=== PATIENT | male | born 1995 | race American Indian/Alaskan Native ===

== ENCOUNTER 2016-12-14 04:05 | Inpatient (IN) | payer MEDICAID ==
[2016-12-14 04:59] LABS: Eosinophils % (Auto) 1.4 % (0.0-4.3); Mean Corpuscular HGB Conc 30 % (32-34); Mean Corpuscular Volume 70 fl (84-94); Platelet Count 391 K/mm3 (140-440); Red Blood Count 5.18 M/mm3 (3.65-5.03)
[2016-12-14 05:07] LABS: Hematocrit 36.3 % (35.5-45.6); Mean Corpuscular Hemoglobin 21 pg (28-32); Red Cell Distribution Width 22.9 % (13.2-15.2)
[2016-12-14 05:22] LABS: Anion Gap 20 mmol/L; BUN/Creatinine Ratio 11.66; Blood Urea Nitrogen 7 mg/dL (9-20); Calcium 8.6 mg/dL (8.4-10.2); Carbon Dioxide 22 mmol/L (22-30); Chloride 100.1 mmol/L (98-107); Glucose 81 mg/dL (75-100); Potassium 3.8 mmol/L (3.6-5.0); Sodium 138 mmol/L (137-145)
[2016-12-14 05:25] LABS: INR 1.09 (0.87-1.13); Partial Thromboplastin Time 34.8 Sec. (24.2-36.6)
[2016-12-14 06:33] LABS: Alanine Aminotransferase 10 units/L (7-56); Alkaline Phosphatase 86 units/L (35-129); Total Protein 7.9 g/dL (6.3-8.2)
[2016-12-14 06:38] LABS: Bilirubin,Direct < 0.2 mg/dL (0-0.2)
[2016-12-14 06:41] LABS: Bilirubin,Indirect 0.5 mg/dL; Bilirubin,Total 0.7 mg/dL (0.1-1.2)
[2016-12-14] MEDS ORDERED: MORPHINE IV ONE ×2 (07:22→10:46)
[2016-12-14] MEDS ORDERED: ZOFRAN IV ONE (07:22)
[2016-12-14] MEDS ORDERED: NACL 0.9% 1000 ML 1,000 ML IV ONE (07:22)
[2016-12-14 08:33] LABS: Urine Drugs of Abuse Note Disclamer
[2016-12-14 08:46] LABS: Bacteria,Urine 1+ /HPF (Negative); Bilirubin,Urine NEG (Negative); Blood,Urine NEG (Negative); Ketones,Urine 20 mg/dL (Negative); Leukocyte Esterase,Urine SM (Negative); Mucus,Urine 3+ /HPF; Nitrite,Urine POS (Negative); Urobilinogen,Urine < 2.0 mg/dL (<2.0)
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
--- NOTE | 2016-12-14 09:28 | Admit Criteria Form ---
Admission Criteria Documentation: WOUND COMPLICATIONS Clinical Indications for Inpatient Care (Place 'X' for any and all applicable criteria): Ongoing inpatient care may be indicated for wound complications with ANY ONE of the following (1) (15): [X]I. Infection with ANY ONE of the following(32)(33): [ ]a) Temperature greater than 38.5 C (101.3 F) [ ]b) Evidence of tissue necrosis [ ]c) Erythema diameter expanding around wound despite treatment [ ]d) Mental status changes [ ]e) Dehydration [ ]f) Bacteremia [ ]g) Hemodynamic instability [ ]h) Suspected necrotizing fasciitis [ ]i) Rapidly spreading lesions [ ]j) High-risk location (eg, perineum, sternum, orbit) [X ]k) High-risk coexisting clinical condition as indicated by ANY ONE of the following: [ ]i) Poorly controlled diabetes [ ]ii) Cirrhosis [ ]iii) Renal failure [ ]iv) Neutropenia [ ] v) Asplenia [ ]vi) Immunosuppression (eg, AIDS, chronic corticosteroid use) [ X]viii) Other high-risk medical comorbidities [ ] II. Dehiscence requiring frequent monitoring or immediate treatment [ ] III. Hematoma with ANY ONE of the following: [ ]a) Hemodynamic instability or acute anemia due to rapid development of hematoma [ ]b) Neck hematoma causing airway compression [ ]c) Retroperitoneal hematoma [ ]d) Uncontrolled coagulopathy [ ]IV. Seroma with evidence of secondary infection and requirement for IV antibiotics [D](31) [ ]V. Pain that cannot be managed at lower level of care Extended stay beyond goal length of stay for primary condition may be needed until ALL of the following are present(1)(33)(34): [ ]a) Afebrile or fever resolving [ ]b) Hemodynamic stability [ ]c) Pain resolving [ ]d) Wound closed, continuity adequately restored, or wound manageable at lower level of care [ ]e) No drain needed or drain care manageable at lower level of care [ ]f) Wound hematoma or seroma resolving [ ]g) Antibiotics not needed or regimen manageable at lower level of care(38) [ ]h) Dressing care manageable at lower level of care [ ]i) Coagulopathy absent, resolved, or treatable at lower level of care [ ]j) Medical comorbidities resolved or treatable at lower level of care The original [facility] content created by Cramen Canales has been revised. The portions of the content which have been revised are identified through the use of italic text or in bold, and Carmen Canales has neither reviewed nor approved the modified material. All other unmodified content is copyright [facility] [employer]. Please see references footnoted in the original [facility] edition 2016 Admission Criteria Met: Yes
[2016-12-14] MEDS ORDERED: BABY ASPIRIN PO ONE (09:45)
[2016-12-14] MEDS ORDERED: MORPHINE ONE (10:36)
--- NOTE | 2016-12-14 10:36 | XRay Report ---
CHEST ONE VIEW INDICATION: Shortness of breath. COMPARISON: 08/24/2016. FINDINGS: Portable, single, frontal chest radiograph demonstrates normal cardiomediastinal silhouette. Clear lungs. Stable bones, including left seventh and eighth rib bony bridging. Few tiny radiodensities projecting about the level of the aortic knob may again be old post traumatic. Extrinsic EKG leads. CONCLUSION: No acute disease in the chest, stable. Thank you for the opportunity to participate in this patient's care.
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
[2016-12-14] MEDS ORDERED: NON-FORMULARY (Oxycodone Hcl/Acetaminophen [Percocet 10/325 Mg] 1 EACH) PO PRN (10:47)
[2016-12-14] MEDS ORDERED: DULCOLAX PR PRN (10:48)
[2016-12-14] MEDS ORDERED: MILK OF MAGNESIA PO PRN (10:48)
[2016-12-14] MEDS ORDERED: ZOFRAN IV PRN (10:48)
[2016-12-14] MEDS ORDERED: TYLENOL PO PRN (10:48)
[2016-12-14] MEDS ORDERED: COUMADIN PO SCH (11:00)
[2016-12-14] MEDS ORDERED: LOVENOX SUB-Q SCH (11:00)
--- NOTE | 2016-12-14 11:00 | XRay Report ---
Right femur: The patient has a percutaneous drain in the soft tissues of the lateral hip. There is generalized edema of the tissues. There is a medullary darren through the shaft with exuberant periosteal new bone formation along the shaft mostly on the medial side. The greater trochanter is inhomogeneous and somewhat sclerotic with poor cortical margination laterally. This heterotopic appearing calcification posteriorly and anteriorly at the level of the trochanter. I have no prior exams for comparison. Impressions: 1. The soft tissue findings are consistent with inflammation. No distinguishable abscess identified. 2. The greater trochanteric findings are suspicious for osteomyelitis. Without prior studies for comparison however this determination is difficult.
[2016-12-14] MEDS ORDERED: VANCOMYCIN PHARMACY TO DOSE IV SCH (12:00)
[2016-12-14] MEDS ORDERED: LOVENOX SUB-Q ONE (12:32)
[2016-12-14] MEDS ORDERED: NACL 0.9% 1000 ML 1,000 ML IV SCH (13:00)
[2016-12-14 13:40] LABS: INR 1.17 (0.87-1.13)
[2016-12-14] MEDS: PERCOCET 5/325 PO PRN ×2 (13:41→19:50)
[2016-12-14] MEDS: VANCOMYCIN VIAL 2,000 MG in NACL 0.9% 500 ML 500 ML IV SCH (16:26)
[2016-12-14] MEDS: LOVENOX SUB-Q SCH (16:39)
[2016-12-14] MEDS: COUMADIN PO SCH (17:26)
[2016-12-15] MEDS: VANCOMYCIN VIAL 2,000 MG in NACL 0.9% 500 ML 500 ML IV SCH (00:35)
[2016-12-15] MEDS: PERCOCET 5/325 PO PRN ×4 (05:28→23:22)
[2016-12-15 07:07] LABS: Mean Corpuscular HGB Conc 29 % (32-34); Mean Corpuscular Volume 72 fl (84-94); Platelet Count 359 K/mm3 (140-440); Red Blood Count 4.62 M/mm3 (3.65-5.03); White Blood Count 5.9 K/mm3 (4.5-11.0)
[2016-12-15 07:11] LABS: Alanine Aminotransferase 8 units/L (7-56); Albumin 3.1 g/dL (3.9-5); Albumin/Globulin Ratio 0.8 %; Alkaline Phosphatase 76 units/L (35-129); Anion Gap 15 mmol/L; BUN/Creatinine Ratio 16.66; Bilirubin,Total 0.2 mg/dL (0.1-1.2); Blood Urea Nitrogen 10 mg/dL (9-20); Calcium 8.1 mg/dL (8.4-10.2); Carbon Dioxide 23 mmol/L (22-30); Chloride 106.7 mmol/L (98-107); Glucose 88 mg/dL (75-100); Sodium 141 mmol/L (137-145); Total Protein 6.8 g/dL (6.3-8.2)
[2016-12-15 07:18] LABS: Hematocrit 33.1 % (35.5-45.6); Hemoglobin 9.7 gm/dl (11.8-15.2); Mean Corpuscular Hemoglobin 21 pg (28-32)
[2016-12-15 08:27] LABS: Basophils % (Manual) 0 % (0.0-1.8); Blastocytes % (Manual) 0 %
[2016-12-15 08:28] LABS: Anisocytosis 1+; Diff Status Complete; Elliptocytes 1+; Hypochromasia 1+; Microcytosis 1+; Ovalocytes 1+
[2016-12-15] MEDS: LOVENOX SUB-Q SCH (10:37)
[2016-12-15 10:55] LABS: INR 1.14 (0.87-1.13)
--- NOTE | 2016-12-15 12:51 | Progress Note ---
Assessment and Plan Assessment and plan: --History of DVT Continue Coumadin, closely monitor INR Target INR 2-3 --Cellulitis Continue IV antibiotics follow cultures and supportive care --Medical noncompliance Patient strongly advised to comply with medications and diet --Ongoing tobacco use Smoking cessation counseling done advised nicotine patch --History of cocaine use Counseling done advised to quit drug use --DVT prophylaxis Patient is already on Coumadin Plan of care discussed with the patient as well as the nurse History Interval history: Patient seen and evaluated medical records reviewed Patient complains of some vague pain Alert awake oriented 3 not in acute distress Hospitalist Physical - Constitutional Vitals: Temp Pulse Resp BP Pulse Ox 98.2 F 72 16 120/79 100 12/15/16 07:35 12/15/16 07:35 12/15/16 07:35 12/15/16 07:35 12/15/16 07:35 General appearance: Present: no acute distress, well-nourished - EENT Eyes: Present: PERRL, EOM intact - Neck Neck: Present: supple, normal ROM - Respiratory Respiratory effort: normal Respiratory: negative: rales, rhonchi, wheezing - Cardiovascular Rhythm: regular Heart Sounds: Present: S1 & S2 - Extremities Extremities: no ischemia, pulses intact Peripheral Pulses: within normal limits - Abdominal General gastrointestinal: soft, non-tender, non-distended, normal bowel sounds Results - Labs CBC & Chem 7: 12/15/16 06:22 12/15/16 06:22 Labs: Laboratory Last Values WBC 5.9 K/mm3 (4.5-11.0) 12/15/16 06:22 RBC 4.62 M/mm3 (3.65-5.03) 12/15/16 06:22 Hgb 9.7 gm/dl (11.8-15.2) L 12/15/16 06:22 Hct 33.1 % (35.5-45.6) L 12/15/16 06:22 MCV 72 fl (84-94) L 12/15/16 06:22 MCH 21 pg (28-32) L 12/15/16 06:22 MCHC 29 % (32-34) L 12/15/16 06:22 RDW 23.0 % (13.2-15.2) H 12/15/16 06:22 Plt Count 359 K/mm3 (140-440) 12/15/16 06:22 Lymph % (Auto) 32.9 % (13.4-35.0) 12/14/16 04:37 [place] % (Auto) 7.2 % (0.0-7.3) 12/14/16 04:37 Eos % (Auto) 1.4 % (0.0-4.3) 12/14/16 04:37 Baso % (Auto) 1.0 % (0.0-1.8) 12/14/16 04:37 Lymph # 2.6 K/mm3 (1.2-5.4) 12/14/16 04:37 [place] # 0.6 K/mm3 (0.0-0.8) 12/14/16 04:37 Eos # 0.1 K/mm3 (0.0-0.4) 12/14/16 04:37 Baso # 0.1 K/mm3 (0.0-0.1) 12/14/16 04:37 Add Manual Diff Complete 12/15/16 06:22 Total Counted 100 12/15/16 06:22 Seg Neutrophils % 57.5 % (40.0-70.0) 12/14/16 04:37 Seg Neuts % (Manual) 59.0 % (40.0-70.0) 12/15/16 06:22 Band Neutrophils % 0 % 12/15/16 06:22 Lymphocytes % (Manual) 31.0 % (13.4-35.0) 12/15/16 06:22 Reactive Lymphs % (Man) 0 % 12/15/16 06:22 Monocytes % (Manual) 4.0 % (0.0-7.3) 12/15/16 06:22 Eosinophils % (Manual) 6.0 % (0.0-4.3) H 12/15/16 06:22 Basophils % (Manual) 0 % (0.0-1.8) 12/15/16 06:22 Metamyelocytes % 0 % 12/15/16 06:22 Myelocytes % 0 % 12/15/16 06:22 Promyelocytes % 0 % 12/15/16 06:22 Blast Cells % 0 % 12/15/16 06:22 Nucleated RBC % Not Reportable 12/15/16 06:22 Seg Neutrophils # 4.6 K/mm3 (1.8-7.7) 12/14/16 04:37 Seg Neutrophils # Man 3.5 K/mm3 (1.8-7.7) 12/15/16 06:22 Band Neutrophils # 0.0 K/mm3 12/15/16 06:22 Lymphocytes # (Manual) 1.8 K/mm3 (1.2-5.4) 12/15/16 06:22 Abs React Lymphs (Man) 0.0 K/mm3 12/15/16 06:22 Monocytes # (Manual) 0.2 K/mm3 (0.0-0.8) 12/15/16 06:22 Eosinophils # (Manual) 0.4 K/mm3 (0.0-0.4) 12/15/16 06:22 Basophils # (Manual) 0.0 K/mm3 (0.0-0.1) 12/15/16 06:22 Metamyelocytes # 0.0 K/mm3 12/15/16 06:22 Myelocytes # 0.0 K/mm3 12/15/16 06:22 Promyelocytes # 0.0 K/mm3 12/15/16 06:22 Blast Cells # 0.0 K/mm3 12/15/16 06:22 WBC Morphology Not Reportable 12/15/16 06:22 Hypersegmented Neuts Not Reportable 12/15/16 06:22 Hyposegmented Neuts Not Reportable 12/15/16 06:22 Hypogranular Neuts Not Reportable 12/15/16 06:22 Smudge Cells Not Reportable 12/15/16 06:22 Toxic Granulation Not Reportable 12/15/16 06:22 Toxic Vacuolation Not Reportable 12/15/16 06:22 Dohle Bodies Not Reportable 12/15/16 06:22 Pelger-Huet Anomaly Not Reportable 12/15/16 06:22 Artie Rods Not Reportable 12/15/16 06:22 Platelet Estimate Appears normal 12/15/16 06:22 Clumped Platelets Not Reportable 12/15/16 06:22 Plt Clumps, EDTA Not Reportable 12/15/16 06:22 Large Platelets Not Reportable 12/15/16 06:22 Giant Platelets Not Reportable 12/15/16 06:22 Platelet Satelliting Not Reportable 12/15/16 06:22 Plt Morphology Comment Not Reportable 12/15/16 06:22 RBC Morphology Not Reportable 12/15/16 06:22 Dimorphic RBCs Not Reportable 12/15/16 06:22 Polychromasia Not Reportable 12/15/16 06:22 Hypochromasia 1+ 12/15/16 06:22 Poikilocytosis Not Reportable 12/15/16 06:22 Anisocytosis 1+ 12/15/16 06:22 Microcytosis 1+ 12/15/16 06:22 Macrocytosis Not Reportable 12/15/16 06:22 Spherocytes Not Reportable 12/15/16 06:22 Pappenheimer Bodies Not Reportable 12/15/16 06:22 Sickle Cells Not Reportable 12/15/16 06:22 Target Cells Not Reportable 12/15/16 06:22 Tear Drop Cells Not Reportable 12/15/16 06:22 Ovalocytes 1+ 12/15/16 06:22 Helmet Cells Not Reportable 12/15/16 06:22 [place] Bodies Not Reportable 12/15/16 06:22 Howard Rings Not Reportable 12/15/16 06:22 [place] Cells Not Reportable 12/15/16 06:22 Bite Cells Not Reportable 12/15/16 06:22 Crenated Cell Not Reportable 12/15/16 06:22 Elliptocytes 1+ 12/15/16 06:22 Acanthocytes (Spur) Not Reportable 12/15/16 06:22 Rouleaux Not Reportable 12/15/16 06:22 Hemoglobin C Crystals Not Reportable 12/15/16 06:22 Schistocytes Not Reportable 12/15/16 06:22 Malaria parasites Not Reportable 12/15/16 06:22 Woodrow Bodies Not Reportable 12/15/16 06:22 Hem Pathologist Commnt No 12/15/16 06:22 PT 14.5 Sec. (12.2-14.9) 12/15/16 09:46 INR 1.14 (0.87-1.13) H 12/15/16 09:46 APTT 34.8 Sec. (24.2-36.6) 12/14/16 04:37 D-Dimer 331.26 ng/mlDDU (0-234) H 12/14/16 04:37 Sodium 141 mmol/L (137-145) 12/15/16 06:22 Potassium 4.0 mmol/L (3.6-5.0) 12/15/16 06:22 Chloride 106.7 mmol/L (98-107) 12/15/16 06:22 Carbon Dioxide 23 mmol/L (22-30) 12/15/16 06:22 Anion Gap 15 mmol/L 12/15/16 06:22 BUN 10 mg/dL (9-20) 12/15/16 06:22 Creatinine 0.6 mg/dL (0.8-1.5) L 12/15/16 06:22 Estimated GFR > 60 ml/min 12/15/16 06:22 BUN/Creatinine Ratio 16.66 % 12/15/16 06:22 Glucose 88 mg/dL (75-100) 12/15/16 06:22 Lactic Acid 1.4 mmol/L (0.7-2.0) 12/14/16 07:32 Calcium 8.1 mg/dL (8.4-10.2) L 12/15/16 06:22 Total Bilirubin 0.2 mg/dL (0.1-1.2) 12/15/16 06:22 Direct Bilirubin < 0.2 mg/dL (0-0.2) 12/14/16 04:37 Indirect Bilirubin 0.5 mg/dL 12/14/16 04:37 AST 13 units/L (5-40) 12/15/16 06:22 ALT 8 units/L (7-56) 12/15/16 06:22 Alkaline Phosphatase 76 units/L (35-129) 12/15/16 06:22 Troponin T < 0.010 ng/mL (0.00-0.029) 12/14/16 04:37 Total Protein 6.8 g/dL (6.3-8.2) 12/15/16 06:22 Albumin 3.1 g/dL (3.9-5) L 12/15/16 06:22 Albumin/Globulin Ratio 0.8 % 12/15/16 06:22 Urine Color Yellow (Yellow) 12/14/16 08:15 Urine Turbidity Slightly-cloudy (Clear) 12/14/16 08:15 Urine pH 6.0 (5.0-7.0) 12/14/16 08:15 Ur Specific [place] 1.019 (1.003-1.030) 12/14/16 08:15 Urine Protein 30 mg/dl mg/dL (Negative) 12/14/16 08:15 Urine Glucose (UA) Neg mg/dL (Negative) 12/14/16 08:15 Urine Ketones 20 mg/dL (Negative) 12/14/16 08:15 Urine Blood Neg (Negative) 12/14/16 08:15 Urine Nitrite Pos (Negative) 12/14/16 08:15 Urine Bilirubin Neg (Negative) 12/14/16 08:15 Urine Urobilinogen < 2.0 mg/dL (<2.0) 12/14/16 08:15 Ur Leukocyte Esterase Sm (Negative) 12/14/16 08:15 Urine WBC (Auto) 4.0 /HPF (0.0-6.0) 12/14/16 08:15 Urine RBC (Auto) 1.0 /HPF (0.0-6.0) 12/14/16 08:15 U Epithel Cells (Auto) 3.0 /HPF (0-13.0) 12/14/16 08:15 Urine Bacteria (Auto) 1+ /HPF (Negative) 12/14/16 08:15 Amorphous Crystals Few 12/14/16 08:15 Urine Mucus 3+ /HPF 12/14/16 08:15 Urine Opiates Screen Presumptive negative 12/14/16 08:15 Urine Methadone Screen Presumptive negative 12/14/16 08:15 Ur Barbiturates Screen Presumptive negative 12/14/16 08:15 Ur Phencyclidine Scrn Presumptive negative 12/14/16 08:15 Ur Amphetamines Screen Presumptive negative 12/14/16 08:15 U Benzodiazepines Scrn Presumptive negative 12/14/16 08:15 Urine Cocaine Screen Presumptive positive 12/14/16 08:15 U Marijuana (THC) Screen Presumptive positive 12/14/16 08:15 Drugs of Abuse Note Disclamer 12/14/16 08:15
[2016-12-15] MEDS: VANCOMYCIN/NS 1 GM/250 ML 1 GM/250 ML BAG IV SCH ×2 (14:12→23:29)
[2016-12-15] MEDS: COUMADIN PO SCH (17:40)
[2016-12-16] MEDS: VANCOMYCIN/NS 1 GM/250 ML 1 GM/250 ML BAG IV SCH (05:34)
[2016-12-16] MEDS: PERCOCET 5/325 PO PRN ×3 (05:51→17:16)
[2016-12-16 05:53] LABS: INR 1.17 (0.87-1.13)
[2016-12-16 08:00] VITALS: BP 119/88
[2016-12-16] MEDS: LOVENOX SUB-Q SCH (10:39)
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
--- NOTE | 2016-12-17 07:44 | Vascular Lab Report ---
Right Lower Extremity Venous Duplex Study: Reason for Exam: Pain of the right lower extremity. Comments on the Right: Chronic deep venous thrombosis starting in the proximal femoral vein and extending through the common into the iliac veins.. The remaining veins visualized are freely compressible without evidence of internal echogenicity. Spontaneous and phasic flow is absent proximally. Comments on the Left: Nonocclusive age indeterminate venous thrombus noted in the left femoral extending into the common femoral veins.. The remaining veins visualized are freely compressible without evidence of internal echogenicity. Spontaneous and phasic flow is absent proximally. Impression: Bilateral deep venous thrombosis..
== END 2016-12-16 17:45 | disposition home or self-care (01) | DRG 603 ==
LOC: ED 04:05 → 3A 10:48
PROVIDERS: ADMIT Internal Medicine; ATTEND Internal Medicine
PROC: HZ34ZZZ Individual Counseling for Substance Abuse Treatment, Interpersonal (ICD-10-PCS; principal; 2016-12-15)
DX: L02.415 Cutaneous abscess of right lower limb (principal); G82.20 Paraplegia, unspecified; M86.651 Other chronic osteomyelitis, right thigh; F17.210 Nicotine dependence, cigarettes, uncomplicated; I82.521 Chronic embolism and thrombosis of right iliac vein; I82.513 Chronic embolism and thrombosis of femoral vein, bilateral; I82.532 Chronic embolism and thrombosis of left popliteal vein; I82.592 Chronic embolism and thrombosis of other specified deep vein of left lower extremity; G89.4 Chronic pain syndrome; L89.90 Pressure ulcer of unspecified site, unspecified stage; Z91.14 Patient's other noncompliance with medication regimen; Z93.3 Colostomy status; F14.90 Cocaine use, unspecified, uncomplicated; Z71.51 Drug abuse counseling and surveillance of drug abuser; Z71.6 Tobacco abuse counseling
CPT/HCPCS: 36415; 71010; 80048; 80053; 80074; 80307; 81001; 82140; 84484; 85007; 85025; 85379; 85610; 85730; 87040; 96361; 96374; 96375; 96376; J1650; J2270; J2405; J3370; J7030; J7040

== ENCOUNTER 2017-02-03 18:45 | Emergency (ER) | payer MEDICAID ==
[2017-02-03 19:30] VITALS: BP 122/77
== END 2017-02-03 20:00 | disposition left against medical advice (07) ==
LOC: ED 18:45
DX: R06.02 Shortness of breath (principal); R07.9 Chest pain, unspecified; Z53.21 Procedure and treatment not carried out due to patient leaving prior to being seen by health care provider

== ENCOUNTER 2017-02-11 20:26 | Emergency (ER) | payer MEDICAID | END 2017-02-11 22:19 | disposition left against medical advice (07) | LOC: ED 20:26 | DX: R07.9 Chest pain, unspecified (principal); Z53.21 Procedure and treatment not carried out due to patient leaving prior to being seen by health care provider ==

== ENCOUNTER 2017-03-01 22:25 | Emergency (ER) | payer MEDICAID | END 2017-03-01 23:04 | disposition left against medical advice (07) | LOC: ED 22:25 | DX: R55 Syncope and collapse (principal); Z53.21 Procedure and treatment not carried out due to patient leaving prior to being seen by health care provider ==

== ENCOUNTER 2017-07-13 12:16 | Emergency (ER) | payer MEDICAID ==
[2017-07-13 12:43] VITALS: BP 113/80
[2017-07-13 13:19] LABS: Urine Drugs of Abuse Note Disclamer
[2017-07-13 13:26] LABS: Eosinophils % (Auto) 1.1 % (0.0-4.3); Hemoglobin 10.6 gm/dl (11.8-15.2)
[2017-07-13 13:30] LABS: Bilirubin,Urine NEG (Negative); Blood,Urine NEG (Negative); Ketones,Urine NEG (Negative); Leukocyte Esterase,Urine SM (Negative); Mucus,Urine FEW /HPF; Nitrite,Urine NEG (Negative); Protein,Urine <15 mg/dL mg/dL (Negative); Urobilinogen,Urine < 2.0 mg/dL (<2.0)
[2017-07-13 13:34] LABS: Basophils % (Auto) 0.9 % (0.0-1.8); Hematocrit 32.8 % (35.5-45.6); Mean Corpuscular HGB Conc 32 % (32-34); Mean Corpuscular Hemoglobin 26 pg (28-32); Mean Corpuscular Volume 80 fl (84-94); Platelet Count 618 K/mm3 (140-440); Red Blood Count 4.08 M/mm3 (3.65-5.03); Red Cell Distribution Width 17.2 % (13.2-15.2); White Blood Count 7.9 K/mm3 (4.5-11.0)
[2017-07-13 13:39] LABS: Anion Gap 20 mmol/L; BUN/Creatinine Ratio 15; Blood Urea Nitrogen 6 mg/dL (9-20); Calcium 8.6 mg/dL (8.4-10.2); Carbon Dioxide 24 mmol/L (22-30); Glucose 74 mg/dL (75-100); Potassium 4.1 mmol/L (3.6-5.0); Sodium 136 mmol/L (137-145)
[2017-07-13 13:41] LABS: Mean Platelet Volume 6.1 fl (6-12)
[2017-07-13 18:32] LABS: Alanine Aminotransferase 7 units/L (7-56); Albumin 3.5 g/dL (3.9-5); Albumin/Globulin Ratio 0.7 %; Alkaline Phosphatase 86 units/L (35-129); Bilirubin,Total < 0.20 mg/dL (0.1-1.2); Total Protein 8.5 g/dL (6.3-8.2)
[2017-07-13 18:56] LABS: Bilirubin,Direct < 0.2 mg/dL (0-0.2)
== END 2017-07-13 19:39 | disposition left against medical advice (07) ==
LOC: ED 12:16
DX: M54.9 Dorsalgia, unspecified (principal); Z53.21 Procedure and treatment not carried out due to patient leaving prior to being seen by health care provider
CPT/HCPCS: 36415; 80048; 80074; 80307; 81001; 85025

== ENCOUNTER 2017-08-16 08:24 | Emergency (ER) | payer MEDICAID ==
[2017-08-16] MEDS ORDERED: PERCOCET 5/325 PO ONE (12:56)
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
[2017-08-16] MEDS ORDERED: ELIQUIS PO ONE (14:00)
[2017-08-16 14:02] VITALS: BP 112/84
== END 2017-08-16 14:02 | disposition home or self-care (01) ==
LOC: ED 08:24
DX: Z76.0 Encounter for issue of repeat prescription (principal); M54.5 Low back pain; I82.409 Acute embolism and thrombosis of unspecified deep veins of unspecified lower extremity; F17.200 Nicotine dependence, unspecified, uncomplicated
CPT/HCPCS: 99283

== ENCOUNTER 2017-11-13 07:27 | Emergency (ER) | payer MEDICAID ==
[2017-11-13] MEDS ORDERED: PERCOCET 5/325 PO ONE (07:39)
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
[2017-11-13 07:54] VITALS: BP 122/59
== END 2017-11-13 14:00 | disposition home or self-care (01) ==
LOC: ED 07:27
DX: L89.322 Pressure ulcer of left buttock, stage 2 (principal); G82.20 Paraplegia, unspecified
CPT/HCPCS: 99283

== ENCOUNTER 2017-11-13 21:47 | Emergency (ER) | payer MEDICAID ==
[2017-11-14 01:29] LABS: Basophils # (Auto) 0.1 K/mm3 (0.0-0.1); Basophils % (Auto) 0.9 % (0.0-1.8); Eosinophils # (Auto) 0.1 K/mm3 (0.0-0.4); Eosinophils % (Auto) 1.7 % (0.0-4.3); Hematocrit 39.5 % (35.5-45.6); Hemoglobin 12.6 gm/dl (11.8-15.2); Lymphocytes # (Auto) 1.5 K/mm3 (1.2-5.4); Lymphocytes % (Auto) 21.5 % (13.4-35.0); Mean Corpuscular HGB Conc 32 % (32-34); Mean Corpuscular Volume 76 fl (84-94); Monocytes # (Auto) 0.6 K/mm3 (0.0-0.8); Monocytes % (Auto) 8.4 % (0.0-7.3); Platelet Count 485 K/mm3 (140-440); Red Blood Count 5.22 M/mm3 (3.65-5.03); Red Cell Distribution Width 17.2 % (13.2-15.2)
[2017-11-14 01:46] LABS: BUN/Creatinine Ratio 13; Blood Urea Nitrogen 8 mg/dL (9-20); Hemolysis Index 4
[2017-11-14 01:47] LABS: Mean Corpuscular Hemoglobin 24 pg (28-32)
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
[2017-11-14 05:24] VITALS: BP 121/74
[2017-11-14 05:47] LABS: Amorphous Crystals,Urine 1+; Bilirubin,Urine NEG (Negative); Blood,Urine NEG (Negative); Calcium Oxalate Crystals,Urine 1+; Color,Urine Yellow (Yellow); Methadone Screen,Urine PRESUMPTIVE NEGATIVE; Mucus,Urine 3+ /HPF; Opiate Screen,Urine PRESUMPTIVE NEGATIVE; Urobilinogen,Urine < 2.0 mg/dL (<2.0)
[2017-11-14 05:58] LABS: Bacteria,Urine 2+ /HPF (Negative)
[2017-11-14 05:59] LABS: Amphetamine Screen,Urine PRESUMPTIVE POSITIVE; Benzodiazepines Screen,Urine PRESUMPTIVE POSITIVE; Cannabinoid Screen,Urine PRESUMPTIVE POSITIVE; Cocaine Screen,Urine PRESUMPTIVE POSITIVE
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
== END 2017-11-14 11:50 | disposition home or self-care (01) ==
LOC: EEVIPCON 21:47 → ED 21:47
DX: L89.109 Pressure ulcer of unspecified part of back, unspecified stage (principal); Z86.718 Personal history of other venous thrombosis and embolism; Z93.3 Colostomy status; F17.200 Nicotine dependence, unspecified, uncomplicated
CPT/HCPCS: 36415; 80048; 80307; 81001; 85025; 99283; G0480; 80320

== ENCOUNTER 2017-11-22 03:00 | Emergency (ER) | payer MEDICAID ==
[2017-11-22 08:35] LABS: Basophils # (Auto) 0.1 K/mm3 (0.0-0.1); Basophils % (Auto) 1.2 % (0.0-1.8); Eosinophils # (Auto) 0.1 K/mm3 (0.0-0.4); Eosinophils % (Auto) 1.1 % (0.0-4.3); Hemoglobin 12.3 gm/dl (11.8-15.2); Lymphocytes # (Auto) 2.2 K/mm3 (1.2-5.4); Lymphocytes % (Auto) 29.6 % (13.4-35.0); Mean Corpuscular HGB Conc 31 % (32-34); Mean Corpuscular Volume 77 fl (84-94); Monocytes # (Auto) 0.4 K/mm3 (0.0-0.8); Monocytes % (Auto) 5.3 % (0.0-7.3); Platelet Count 540 K/mm3 (140-440); Red Blood Count 5.05 M/mm3 (3.65-5.03); Red Cell Distribution Width 17.6 % (13.2-15.2)
[2017-11-22 08:38] LABS: Mean Corpuscular Hemoglobin 24 pg (28-32)
[2017-11-22 08:47] LABS: BUN/Creatinine Ratio 13; Blood Urea Nitrogen 8 mg/dL (9-20); Hemolysis Index 2
[2017-11-22 10:09] VITALS: BP 112/72
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
[2017-11-22 10:35] LABS: Bacteria,Urine 4+ /HPF (Negative); Bilirubin,Urine NEG (Negative); Blood,Urine NEG (Negative); Color,Urine Amber (Yellow); Protein,Urine >500 mg/dL (Negative); Urobilinogen,Urine < 2.0 mg/dL (<2.0)
[2017-11-22] MEDS ORDERED: BACTRIM DS PO ONE (10:55)
== END 2017-11-22 12:08 | disposition home or self-care (01) ==
LOC: ED 03:00
DX: N30.01 Acute cystitis with hematuria (principal); F17.200 Nicotine dependence, unspecified, uncomplicated; F12.10 Cannabis abuse, uncomplicated; Z86.718 Personal history of other venous thrombosis and embolism
CPT/HCPCS: 36415; 80048; 81001; 85025; 87076; 87086; 87186; 99283

== ENCOUNTER 2017-12-15 23:01 | Emergency (ER) | payer MEDICAID ==
[2017-12-16] MEDS ORDERED: PERCOCET 5/325 PO ONE (02:50)
[2017-12-16 02:59] VITALS: BP 113/69
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
== END 2017-12-16 05:22 | disposition home or self-care (01) ==
LOC: ED 23:01
DX: L89.899 Pressure ulcer of other site, unspecified stage (principal); G82.20 Paraplegia, unspecified; Z86.718 Personal history of other venous thrombosis and embolism; F17.200 Nicotine dependence, unspecified, uncomplicated; Z93.3 Colostomy status
CPT/HCPCS: 99282

== ENCOUNTER 2017-12-22 00:17 | Emergency (ER) | payer MEDICAID ==
[2017-12-22] MEDS ORDERED: PERCOCET 5/325 PO ONE (00:36)
[2017-12-22] MEDS ORDERED: PERCOCET 5/325 ONE (00:39)
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
[2017-12-22 02:47] VITALS: BP 108/72
== END 2017-12-22 02:47 | disposition home or self-care (01) ==
LOC: ED 00:17
DX: L89.329 Pressure ulcer of left buttock, unspecified stage (principal); F17.200 Nicotine dependence, unspecified, uncomplicated
CPT/HCPCS: 99283

== ENCOUNTER 2017-12-22 02:45 | Emergency (ER) | payer MEDICAID ==
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
[2017-12-22] MEDS ORDERED: PERCOCET 5/325 ONE (09:17)
[2017-12-22] MEDS ORDERED: PERCOCET 5/325 PO ONE (09:26)
[2017-12-22 09:31] VITALS: BP 128/73
[2017-12-22 09:50] LABS: Bacteria,Urine 1+ /HPF (Negative); Bilirubin,Urine NEG (Negative); Blood,Urine NEG (Negative); Color,Urine Yellow (Yellow); Mucus,Urine 2+ /HPF; Protein,Urine <15 mg/dL mg/dL (Negative)
[2017-12-22 11:33] LABS: Amphetamine Screen,Urine PRESUMPTIVE NEGATIVE; Benzodiazepines Screen,Urine PRESUMPTIVE NEGATIVE; Methadone Screen,Urine PRESUMPTIVE NEGATIVE; Opiate Screen,Urine PRESUMPTIVE NEGATIVE
[2017-12-22 11:55] LABS: Cannabinoid Screen,Urine PRESUMPTIVE POSITIVE; Cocaine Screen,Urine PRESUMPTIVE POSITIVE
== END 2017-12-22 10:25 | disposition home or self-care (01) ==
LOC: ED 02:45
DX: G82.20 Paraplegia, unspecified (principal); L89.229 Pressure ulcer of left hip, unspecified stage; L89.219 Pressure ulcer of right hip, unspecified stage; F17.200 Nicotine dependence, unspecified, uncomplicated
CPT/HCPCS: 80307; 81001; 87086; 99283

== ENCOUNTER 2018-01-04 18:06 | Emergency (ER) | payer MEDICAID ==
[2018-01-04] MEDS ORDERED: NACL 0.9% 500 ML 500 ML IV ONE ×2 (18:31→18:41)
[2018-01-04 19:10] LABS: Basophils % (Auto) 0.6 % (0.0-1.8); Hematocrit 39.9 % (35.5-45.6); Hemoglobin 12.5 gm/dl (11.8-15.2); Lymphocytes # (Auto) 0.9 K/mm3 (1.2-5.4); Lymphocytes % (Auto) 11.9 % (13.4-35.0); Mean Corpuscular HGB Conc 31 % (32-34); Mean Corpuscular Volume 79 fl (84-94); Monocytes # (Auto) 0.6 K/mm3 (0.0-0.8); Monocytes % (Auto) 7.7 % (0.0-7.3); Platelet Count 465 K/mm3 (140-440); Red Blood Count 5.07 M/mm3 (3.65-5.03)
[2018-01-04 19:13] LABS: Alanine Aminotransferase 6 units/L (7-56); BUN/Creatinine Ratio 10; Blood Urea Nitrogen 6 mg/dL (9-20); Calcium 8.9 mg/dL (8.4-10.2); Hemolysis Index 0; INR 0.96 (0.87-1.13)
[2018-01-04 19:53] LABS: Mean Corpuscular Hemoglobin 25 pg (28-32)
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
[2018-01-04 20:58] LABS: Bacteria,Urine 1+ /HPF (Negative); Bilirubin,Urine NEG (Negative); Blood,Urine NEG (Negative); Color,Urine Yellow (Yellow); Mucus,Urine FEW /HPF; Urobilinogen,Urine < 2.0 mg/dL (<2.0)
[2018-01-04] MEDS ORDERED: NORCO 5/325 PO ONE (20:58)
[2018-01-04 21:07] LABS: Protein,Urine >500 mg/dL (Negative)
--- NOTE | 2018-01-04 22:48 | XRay Report ---
FINAL REPORT EXAM: XR CHEST 1V AP HISTORY: possible Sepsis TECHNIQUE: AP portable view of the chest PRIORS: None. FINDINGS: Lines, tubes, and devices: N/A Lungs and pleura: Trachea is normal in position. Lungs are clear of infiltrate, pleural effusion, vascular congestion, or pneumothorax. Cardiomediastinal silhouette: Cardiac and mediastinal silhouettes are unremarkable. Other: Bony structures are intact. IMPRESSION: No acute cardiopulmonary process seen.
--- NOTE | 2018-01-04 23:06 | Cat Scan Report ---
FINAL REPORT EXAM: CT PELVIS WO CON HISTORY: osteomyeltis COMPARISON: None available. TECHNIQUE: Contiguous axial images were obtained. Additional sagittal and coronal reformatted images were obtained. FINDINGS: Large the sacral decubitus ulcer at the posterior margin of the left ischial tuberosity. Prominent skin thickening along the margin of the ulcer. There is prominent periosteal reaction sclerosis of left ischial tuberosity compatible with probable chronic osteomyelitis. No definite drainable abscess in the soft tissues on this noncontrast exam. There pockets a gas and ill-defined fluid in the sacral decubitus ulcer. Mild skin thickening and subcutaneous fat stranding along the inferior right gluteal cheek which could reflect cellulitis. No soft tissue or skin defect in that region. Right femoral darren is in place. There is heterotopic ossification at its margin. There is also heterotopic ossification along the margin of the left greater trochanter. There is skin thickening and subcutaneous soft tissue thickening at the lateral margins of the hips bilaterally which may relate to pressure points. No free fluid or fluid collection the pelvic cavity. Diffuse wall thickening the urinary bladder which may be on a chronic basis and may relate to is partially decompressed state. Prostate gland is unremarkable. Pelvic bowel loops normal in caliber. The appendix is normal in caliber. There multiple vessels along the subcutaneous fat and pelvic cavity. There also several small pelvic lymph nodes and inguinal lymph nodes. These may be reactive. None are pathologically enlarged. IMPRESSION: Large sacral decubitus ulcer at the posterior margin of the left ischial tuberosity. Prominent sclerosis and hypertrophic spurring along the left ischial tuberosity compatible with chronic osteomyelitis. No focal bony destructive lesion. Ill-defined fluid along the left sacral decubitus ulcer. No drainable abscess by noncontrast CT. Skin thickening and subcutaneous fat stranding along the right inferior gluteal cheek which could reflect areas cellulitis. No skin defect or abscess along the right gluteal cheek. Skin thickening and soft tissue thickening along the subcutaneous fat at the lateral margins of the greater trochanters bilaterally suspect represent skin pressure points. Prominent hypertrophic spurring along greater trochanters bilaterally.
[2018-01-04] MEDS ORDERED: LEVAQUIN PO ONE (23:49)
[2018-01-05 00:06] VITALS: BP 99/67
[2018-01-05] MEDS ORDERED: ELIQUIS PO ONE (00:25)
== END 2018-01-05 00:38 | disposition home or self-care (01) ==
LOC: ED 18:06
DX: L89.329 Pressure ulcer of left buttock, unspecified stage (principal); N39.0 Urinary tract infection, site not specified; F17.200 Nicotine dependence, unspecified, uncomplicated
CPT/HCPCS: 36415; 71045; 72192; 80053; 81001; 82140; 82805; 85025; 85610; 87040; 87086; 99285

== ENCOUNTER 2018-01-22 05:35 | Emergency (ER) | payer MEDICAID ==
[2018-01-22] MEDS ORDERED: PERCOCET 5/325 PO ONE (09:20)
[2018-01-22] MEDS ORDERED: ZOFRAN ODT PO ONE (09:20)
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
[2018-01-22 09:49] VITALS: BP 130/83
== END 2018-01-22 09:50 | disposition home or self-care (01) ==
LOC: ED 05:35
DX: Z76.0 Encounter for issue of repeat prescription (principal); F17.200 Nicotine dependence, unspecified, uncomplicated; Z86.718 Personal history of other venous thrombosis and embolism
CPT/HCPCS: 99283; Q0162

== ENCOUNTER 2018-01-22 18:16 | Emergency (ER) | payer MEDICAID ==
[2018-01-22 20:50] VITALS: BP 122/77
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
== END 2018-01-22 22:12 | disposition home or self-care (01) ==
LOC: ED 18:16
DX: F32.9 Major depressive disorder, single episode, unspecified (principal); F41.9 Anxiety disorder, unspecified; F17.200 Nicotine dependence, unspecified, uncomplicated; Z93.3 Colostomy status; Z86.718 Personal history of other venous thrombosis and embolism; Z79.01 Long term (current) use of anticoagulants
CPT/HCPCS: 99283

== ENCOUNTER 2018-06-06 13:31 | Emergency (ER) | payer MEDICAID ==
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
[2018-06-06] MEDS ORDERED: NACL 0.9% 1000 ML 1,000 ML IV ONE (14:16)
[2018-06-06] MEDS ORDERED: DILAUDID IV ONE (14:16)
[2018-06-06 14:27] VITALS: BP 126/75
[2018-06-06] MEDS ORDERED: ZOFRAN ONE (14:40)
[2018-06-06] MEDS ORDERED: ZOFRAN IV ONE (14:50)
[2018-06-06 15:01] LABS: Basophils % (Auto) 0.6 % (0.0-1.8); Eosinophils % (Auto) 0.2 % (0.0-4.3); Hematocrit 38.7 % (35.5-45.6); Hemoglobin 12.1 gm/dl (11.8-15.2); Lymphocytes # (Auto) 2.1 K/mm3 (1.2-5.4); Lymphocytes % (Auto) 24.5 % (13.4-35.0); Mean Corpuscular HGB Conc 31 % (32-34); Mean Corpuscular Volume 75 fl (84-94); Monocytes # (Auto) 0.4 K/mm3 (0.0-0.8); Monocytes % (Auto) 4.9 % (0.0-7.3); Platelet Count 565 K/mm3 (140-440); Red Blood Count 5.16 M/mm3 (3.65-5.03); Red Cell Distribution Width 19.2 % (13.2-15.2)
[2018-06-06 15:02] LABS: Mean Corpuscular Hemoglobin 23 pg (28-32)
[2018-06-06 15:18] LABS: Alanine Aminotransferase 18 units/L (7-56); Albumin 4.3 g/dL (3.9-5); BUN/Creatinine Ratio 13; Blood Urea Nitrogen 8 mg/dL (9-20); Hemolysis Index 0
== END 2018-06-06 16:00 | disposition left against medical advice (07) ==
LOC: ED 13:31
DX: L89.312 Pressure ulcer of right buttock, stage 2 (principal); F17.200 Nicotine dependence, unspecified, uncomplicated; Z86.718 Personal history of other venous thrombosis and embolism; Z93.3 Colostomy status
CPT/HCPCS: 36415; 80053; 82140; 85025; 96374; 96375; 99283; J1170; J2405; J7030

== ENCOUNTER 2018-06-15 23:03 | Emergency (ER) | payer MEDICAID ==
[2018-06-15 23:45] VITALS: BP 130/96
[2018-06-15] MEDS ORDERED: NACL 0.9% 1000 ML 1,000 ML IV ONE (23:45)
== END 2018-06-16 05:30 | disposition left against medical advice (07) ==
LOC: ED 23:03
DX: R10.9 Unspecified abdominal pain (principal); Z53.21 Procedure and treatment not carried out due to patient leaving prior to being seen by health care provider

== ENCOUNTER 2018-06-16 06:45 | Emergency (ER) | payer MEDICAID ==
[2018-06-16 10:54] VITALS: BP 153/102
[2018-06-16] MEDS ORDERED: PERCOCET 5/325 PO ONE (12:32)
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
== END 2018-06-16 13:16 | disposition home or self-care (01) ==
LOC: ED 06:45
DX: L89.309 Pressure ulcer of unspecified buttock, unspecified stage (principal); L89.109 Pressure ulcer of unspecified part of back, unspecified stage; Z86.718 Personal history of other venous thrombosis and embolism; Z88.6 Allergy status to analgesic agent
CPT/HCPCS: 99282

== ENCOUNTER 2018-06-17 14:19 | Inpatient (IN) | payer MEDICAID ==
[2018-06-17] MEDS ORDERED: GEODON IM ONE ×2 (14:54→14:55)
[2018-06-17] MEDS ORDERED: NACL P/F VIAL (10 ML) 10 ML ONE (14:55)
[2018-06-17] MEDS ORDERED: NACL 0.9% 1000 ML IV ONE ×2 (15:19→19:57)
[2018-06-17] MEDS ORDERED: NACL 0.9% 1000 ML 2,000 ML ONE (15:24)
[2018-06-17 16:42] LABS: Free T4 (Free Thyroxine) 1.64 ng/dL (0.76-1.46)
[2018-06-17 16:42] LABS: Basophils % (Auto) 0.5 % (0.0-1.8); Eosinophils % (Auto) 0.1 % (0.0-4.3); Hematocrit 40.7 % (35.5-45.6); Hemoglobin 12.9 gm/dl (11.8-15.2); Lymphocytes # (Auto) 1.6 K/mm3 (1.2-5.4); Lymphocytes % (Auto) 17.7 % (13.4-35.0); Mean Corpuscular HGB Conc 32 % (32-34); Mean Corpuscular Volume 76 fl (84-94); Monocytes # (Auto) 0.5 K/mm3 (0.0-0.8); Monocytes % (Auto) 5.3 % (0.0-7.3); Platelet Count 561 K/mm3 (140-440); Red Blood Count 5.36 M/mm3 (3.65-5.03); Red Cell Distribution Width 19.7 % (13.2-15.2)
[2018-06-17] MEDS ORDERED: NACL 0.9% 1000 ML 1,000 ML IV ONE (16:53)
[2018-06-17 17:08] LABS: Mean Corpuscular Hemoglobin 24 pg (28-32)
[2018-06-17 17:15] LABS: Bilirubin,Urine NEG (Negative); Blood,Urine NEG (Negative)
[2018-06-17 17:16] LABS: Color,Urine Yellow (Yellow)
[2018-06-17 17:23] LABS: Creatine Kinase MB 11.3 ng/mL (0.0-4.0)
[2018-06-17 17:25] LABS: BUN/Creatinine Ratio 11; Blood Urea Nitrogen 9 mg/dL (9-20)
[2018-06-17 17:26] LABS: Alanine Aminotransferase 18 units/L (7-56); Albumin 4.1 g/dL (3.9-5); Calcium 9.2 mg/dL (8.4-10.2)
--- NOTE | 2018-06-17 17:54 | History and Physical Report ---
History of Present Illness Chief complaint: Confused, and combative History of present illness: 23 YO Male with PTSD, Polysubstance Abuse, Severe Malnutrition, DVT on therapeutic anticoagulation, T4 Paraplegia, Sacral Decubitus Ulcers presents to ED for evaluation. Pt was noted to be confused and combative today. EMS notified and patient found to be confused and combative upon arrival. Pt transported to [facility] for further care and evaluation. Pt confused and combative and unable to provide history. Pt history taken from EMS, and ED staff. No further history obtailable. Pt seen and evaluated in ED and found to have encephalopathy suspected secondary to substance abuse, SIRS, and acidosis. Pt admitted to medical floor. Pt symptoms improved with Geodon and suupportive care. Past History Past Medical History: DVT, other (PTSD, PSA, Sacral Decub Ulcers, ) Past Surgical History: Other (Leg surgery) Social history: single, smoking, other (Polysubstance abuse) Family history: hypertension Medications and Allergies Allergies Allergy/AdvReac Type Severity Reaction Status Date / Time morphine Allergy Rash Verified 06/16/18 10:49 Home Medications Medication Instructions Recorded Confirmed Last Taken Type Apixaban [Eliquis] 5 mg PO BID #60 tablet 06/16/18 06/17/18 Unknown Rx Gabapentin [Neurontin] 100 mg PO Q8HR #90 capsule 06/16/18 06/17/18 Unknown Rx Diazepam [Valium] 5 mg PO HS PRN 06/17/18 06/17/18 Unknown History oxyCODONE /ACETAMINOPHEN [Percocet 1 tab PO BID PRN 06/17/18 06/17/18 Unknown History 5/325] Review of Systems ROS unobtainable: due to mental status Exam - Constitutional Vitals: Temp Pulse Resp BP Pulse Ox 99.6 F 107 H 12 109/64 100 06/17/18 15:20 06/17/18 16:07 06/17/18 16:07 06/17/18 16:07 06/17/18 16:07 General appearance: Present: mild distress - EENT Eyes: Present: miosis ENT: hearing intact, clear oral mucosa - Neck Neck: Present: supple, normal ROM - Respiratory Respiratory effort: normal Respiratory: bilateral: CTA - Cardiovascular Rhythm: other (tachycardia) Heart Sounds: Present: S1 & S2. Absent: rub, click - Extremities Extremities: pulses symmetrical, No edema Peripheral Pulses: within normal limits - Abdominal General gastrointestinal: Present: soft, non-tender, non-distended, normal bowel sounds Male genitourinary: Present: normal - Integumentary Integumentary: Present: clear, clammy, decreased turgor - Musculoskeletal Musculoskeletal: generalized weakness - Psychiatric Psychiatric: no intact judgment & insight, no memory intact - Neurologic Neurologic: focal deficits, no moves all extremities, no gait normal Results - Labs CBC & Chem 7: 06/17/18 14:48 06/17/18 14:48 Labs: Abnormal lab results 06/17/18 06/17/18 06/17/18 Range/Units 14:48 14:48 15:16 RBC 5.36 H (3.65-5.03) M/mm3 MCV 76 L (84-94) fl MCH 24 L (28-32) pg RDW 19.7 H (13.2-15.2) % Plt Count 561 H (140-440) K/mm3 Seg Neutrophils % 76.4 H (40.0-70.0) % VBG pH (7.320-7.420) Potassium 3.2 L (3.6-5.0) mmol/L Chloride 97.2 L (98-107) mmol/L Carbon Dioxide 18 L (22-30) mmol/L Lactic Acid (0.7-2.0) mmol/L Magnesium (1.7-2.3) mg/dL Total Creatine Kinase (55-170) units/L CK-MB (CK-2) (0.0-4.0) ng/mL Total Protein 9.2 H (6.3-8.2) g/dL Free T4 1.64 H (0.76-1.46) ng/dL 06/17/18 06/17/18 06/17/18 Range/Units 15:20 15:21 15:21 RBC (3.65-5.03) M/mm3 MCV (84-94) fl MCH (28-32) pg RDW (13.2-15.2) % Plt Count (140-440) K/mm3 Seg Neutrophils % (40.0-70.0) % VBG pH 7.266 L (7.320-7.420) Potassium (3.6-5.0) mmol/L Chloride (98-107) mmol/L Carbon Dioxide (22-30) mmol/L Lactic Acid 10.70 H* (0.7-2.0) mmol/L Magnesium 2.50 H (1.7-2.3) mg/dL Total Creatine Kinase 523 H (55-170) units/L CK-MB (CK-2) 11.3 H (0.0-4.0) ng/mL Total Protein (6.3-8.2) g/dL Free T4 (0.76-1.46) ng/dL Assessment and Plan - Patient Problems (1) SIRS (systemic inflammatory response syndrome) Current Visit: Yes Status: Acute Plan to address problem: IV antibiotic therapy, IVF resuscitation, serial lactic acid level, urinalysis, chest x ray, CBC, CMP (2) Acidosis Current Visit: Yes Status: Acute Plan to address problem: Serial lactic acid, IVF resuscitation therapy, monitor uop q shift, (3) Encephalopathy Current Visit: Yes Status: Acute Plan to address problem: CT Head, Neuro checks, UDS, seizure precautions, aspiration precautions. (4) Amphetamine abuse Current Visit: Yes Status: Acute Plan to address problem: Supportive care, IVF resuscitation therapy, diet as tolerated, Pt counseled regarding cessation (5) Cocaine abuse Current Visit: Yes Status: Acute Plan to address problem: IVF resuscitation, supportive care, Pt counseled regarding cessation. (6) Decubitus ulcers Current Visit: Yes Status: Acute Qualifiers: Pressure injury location: contiguous region involving back and buttock Plan to address problem: supportive care, wound care consulted. (7) Severe malnutrition Current Visit: Yes Status: Acute Plan to address problem: Encourage increased protein intake, (8) DVT (deep venous thrombosis) Current Visit: Yes Status: Acute Plan to address problem: Continue therapeutic anticoagulation. (9) DVT prophylaxis Current Visit: Yes Status: Acute Plan to address problem: scd to ble while in bed.
[2018-06-17] MEDS ORDERED: VANCOMYCIN/NS 1 GM/250 ML 1 GM/250 ML BAG IV SCH (18:00)
[2018-06-17 18:17] LABS: Benzodiazepines Screen,Urine PRESUMPTIVE NEGATIVE; Methadone Screen,Urine PRESUMPTIVE NEGATIVE; Opiate Screen,Urine PRESUMPTIVE NEGATIVE
[2018-06-17 18:35] LABS: Amphetamine Screen,Urine PRESUMPTIVE POSITIVE; Cannabinoid Screen,Urine PRESUMPTIVE POSITIVE; Cocaine Screen,Urine PRESUMPTIVE POSITIVE
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
[2018-06-17] MEDS: ZOSYN/NS 4.5GM/100ML 4.5 GM/100 ML VIAL IV SCH (18:59)
--- NOTE | 2018-06-17 19:26 | XRay Report ---
FINAL REPORT PROCEDURE: XR CHEST 1V AP TECHNIQUE: Chest radiograph anteroposterior view. CPT 92772 HISTORY: ams, possible sepsis COMPARISON: 01/04/2018 FINDINGS: Heart: Normal. Mediastinum/Vessels: Normal. Lungs/Pleural space: Normal. Bony thorax: Focal fusion of left 7th and 8th ribs is again noted most likely secondary to old trauma. Small metallic foreign body fragments are note in the spine at the level of T5 as seen on the prior study. Life support devices: None. IMPRESSION: No acute cardiopulmonary abnormality.
--- NOTE | 2018-06-17 19:35 | Cat Scan Report ---
FINAL REPORT PROCEDURE: CT HEAD/BRAIN WO CON TECHNIQUE: Computerized tomography of the head was performed without contrast material. HISTORY: transient ams COMPARISON: No prior studies are available for comparison. FINDINGS: Skull and scalp: Normal. Paranasal sinuses: Normal. Ventricles and subarachnoid spaces: Normal. Cerebrum: No evidence of hemorrhage, acute infarction or mass . Cerebellum and brainstem: No evidence of hemorrhage, acute infarction or mass. Vasculature: Normal. Comments: None. IMPRESSION: Normal Examination
[2018-06-17] MEDS ORDERED: ZOFRAN IV PRN (19:53)
[2018-06-17] MEDS ORDERED: TYLENOL PO PRN (19:53)
[2018-06-17] MEDS ORDERED: SODIUM CHLORIDE FLUSH SYRINGE 10 ML IV PRN (19:53)
--- NOTE | 2018-06-17 19:53 | Cat Scan Report ---
FINAL REPORT PROCEDURE: CT ABDOMEN PELVIS W CON TECHNIQUE: Computerized axial tomography of the abdomen and pelvis was performed after the IV injection of iodinated nonionic contrast. HISTORY: elevated lactic acid, colostomy COMPARISON: No prior studies are available for comparison. FINDINGS: Limited study due to streak artifacts from the arms. Liver, spleen, pancreas and adrenal glands are within normal limits. Bilateral kidneys demonstrate uniform enhancement without hydronephrosis. Aorta is of normal caliber. There is no free fluid or free air. Gallbladder is unremarkable. Small bowel loops are within normal limits. Urinary bladder is minimally filled with a Dickey bulb in situ. Urinary bladder zelaya appear thickened. A left lower quadrant ostomy is identified. Appendix is normal. There is diffuse sclerosis of left ischial tuberosity. Irregular areas of benign-appearing soft tissue ossifications are noted in the bilateral hip regions. IMPRESSION: Thickened urinary bladder zelaya may represent cystitis. No acute intra-abdominal or pelvic pathology.
[2018-06-17] MEDS ORDERED: VALIUM PO PRN (19:56)
[2018-06-17] MEDS ORDERED: VANCOMYCIN 1,250 MG in NACL 0.9% 500 ML 500 ML IV ONE (19:57)
[2018-06-17] MEDS ORDERED: K-DUR PO ONE (20:00)
[2018-06-17] MEDS: NEURONTIN PO SCH (23:34)
[2018-06-17] MEDS: SODIUM CHLORIDE FLUSH SYRINGE 10 ML IV SCH (23:34)
[2018-06-17] MEDS: ELIQUIS PO SCH (23:34)
[2018-06-18] MEDS: PERCOCET 5/325 PO PRN ×2 (00:48→19:54)
[2018-06-18] MEDS: ZOSYN/NS 4.5GM/100ML 4.5 GM/100 ML VIAL IV SCH ×5 (00:51→17:14)
[2018-06-18] MEDS: NEURONTIN PO SCH ×3 (05:56→22:21)
[2018-06-18] MEDS ORDERED: PERCOCET 5/325 PO ONE (08:43)
[2018-06-18] MEDS ORDERED: XANAX PO PRN ×2 (09:10→11:00)
[2018-06-18] MEDS: ELIQUIS PO SCH ×2 (10:07→22:19)
[2018-06-18] MEDS: SODIUM CHLORIDE FLUSH SYRINGE 10 ML IV SCH ×2 (10:08→22:20)
--- NOTE | 2018-06-18 11:01 | Progress Note ---
Assessment and Plan Assessment and plan: --Acute anxiety; Xanax as needed, when necessary, psychiatric evaluation --Acute psychosis/agitation Patient feels that he is not safe, agitated Psych evaluation, safety seat/1013 started --Polysubstance abuse; drug screen positive for Cocaine marijuana and amphetamines Counseling, advised to quit patient is --Ongoing tobacco use; smoking cessation counseling, nicotine patch --Chest pain; probably secondary to cocaine use EKG no acute ST-T changes, positive cardiac enzymes negative Serial cardiac enzymes, echocardiogram, cardiology consult if needed --History of PTSD; consult psych --H/O Paraplegia; supportive. Patient acute psychosis, leaving the floor, unable to follow instruction 1013 status, Psych evaluation Plan of care reviewed with the patient, his nurse and charge nurse History Interval history: Patient seen and examined medical records reviewed Patient admitted with confusion and combative behavior Polysubstance abuse This morning patient complaints of severe chest pain, code MET called EKG no acute changes, symptomatically managed with pain medications Patient slightly better, has some anxiety Sometimes complaints of not feeling safe in the room Frequently leaving the floor with his wheelchair Vital signs reviewed Hospitalist Physical - Constitutional Vitals: Temp Pulse Resp BP Pulse Ox 97.9 F 99 H 20 118/89 100 06/18/18 00:15 06/18/18 00:15 06/18/18 00:15 06/18/18 00:15 06/18/18 03:46 General appearance: Present: mild distress, cachectic, other (anxious) - EENT Eyes: Present: PERRL, EOM intact - Neck Neck: Present: supple, normal ROM - Respiratory Respiratory effort: normal Respiratory: bilateral: diminished, negative: rales, rhonchi - Cardiovascular Rhythm: regular Heart Sounds: Present: S1 & S2 - Extremities Extremities: no ischemia, No edema - Abdominal General gastrointestinal: soft, non-tender, non-distended, normal bowel sounds - Integumentary Integumentary: Present: clear, warm - Psychiatric Psychiatric: agitated, other (anxious, psychotic at times) - Neurologic Neurologic: other (paraplegic) Results - Labs CBC & Chem 7: 06/17/18 14:48 06/17/18 14:48 Labs: Laboratory Last Values WBC 8.8 K/mm3 (4.5-11.0) 06/17/18 14:48 RBC 5.36 M/mm3 (3.65-5.03) H 06/17/18 14:48 Hgb 12.9 gm/dl (11.8-15.2) 06/17/18 14:48 Hct 40.7 % (35.5-45.6) 06/17/18 14:48 MCV 76 fl (84-94) L 06/17/18 14:48 MCH 24 pg (28-32) L 06/17/18 14:48 MCHC 32 % (32-34) 06/17/18 14:48 RDW 19.7 % (13.2-15.2) H 06/17/18 14:48 Plt Count 561 K/mm3 (140-440) H 06/17/18 14:48 Lymph % (Auto) 17.7 % (13.4-35.0) 06/17/18 14:48 [place] % (Auto) 5.3 % (0.0-7.3) 06/17/18 14:48 Eos % (Auto) 0.1 % (0.0-4.3) 06/17/18 14:48 Baso % (Auto) 0.5 % (0.0-1.8) 06/17/18 14:48 Lymph # 1.6 K/mm3 (1.2-5.4) 06/17/18 14:48 [place] # 0.5 K/mm3 (0.0-0.8) 06/17/18 14:48 Eos # 0.0 K/mm3 (0.0-0.4) 06/17/18 14:48 Baso # 0.0 K/mm3 (0.0-0.1) 06/17/18 14:48 Seg Neutrophils % 76.4 % (40.0-70.0) H 06/17/18 14:48 Seg Neutrophils # 6.7 K/mm3 (1.8-7.7) 06/17/18 14:48 VBG pH 7.266 (7.320-7.420) L 06/17/18 15:21 Sodium 141 mmol/L (137-145) 06/17/18 14:48 Potassium 3.2 mmol/L (3.6-5.0) L 06/17/18 14:48 Chloride 97.2 mmol/L (98-107) L 06/17/18 14:48 Carbon Dioxide 18 mmol/L (22-30) L 06/17/18 14:48 Anion Gap 29 mmol/L 06/17/18 14:48 BUN 9 mg/dL (9-20) 06/17/18 14:48 Creatinine 0.8 mg/dL (0.8-1.5) 06/17/18 14:48 Estimated GFR > 60 ml/min 06/17/18 14:48 BUN/Creatinine Ratio 11 % 06/17/18 14:48 Glucose 79 mg/dL (75-100) 06/17/18 14:48 POC Glucose 88 (70-105) 06/17/18 15:11 Lactic Acid 1.30 mmol/L (0.7-2.0) 06/18/18 05:28 Calcium 9.2 mg/dL (8.4-10.2) 06/17/18 14:48 Magnesium 2.50 mg/dL (1.7-2.3) H 06/17/18 15:21 Total Bilirubin 0.80 mg/dL (0.1-1.2) 06/17/18 14:48 AST 28 units/L (5-40) 06/17/18 14:48 ALT 18 units/L (7-56) 06/17/18 14:48 Alkaline Phosphatase 104 units/L (35-129) 06/17/18 14:48 Total Creatine Kinase 523 units/L (55-170) H 06/17/18 15:21 CK-MB (CK-2) 11.3 ng/mL (0.0-4.0) H 06/17/18 15:21 CK-MB (CK-2) Rel Index 2.1 (0-4) 06/17/18 15:21 Troponin T < 0.010 ng/mL (0.00-0.029) 06/17/18 15:21 Total Protein 9.2 g/dL (6.3-8.2) H 06/17/18 14:48 Albumin 4.1 g/dL (3.9-5) 06/17/18 14:48 Albumin/Globulin Ratio 0.8 % 06/17/18 14:48 TSH 0.652 mlU/mL (0.270-4.200) 06/17/18 15:16 Free T4 1.64 ng/dL (0.76-1.46) H 06/17/18 15:16 Urine Color Yellow (Yellow) 06/17/18 15:00 Urine Turbidity Clear (Clear) 06/17/18 15:00 Urine pH 6.0 (5.0-7.0) 06/17/18 15:00 Ur Specific [place] 1.028 (1.003-1.030) 06/17/18 15:00 Urine Protein 100 mg/dl mg/dL (Negative) 06/17/18 15:00 Urine Glucose (UA) Neg mg/dL (Negative) 06/17/18 15:00 Urine Ketones 20 mg/dL (Negative) 06/17/18 15:00 Urine Blood Neg (Negative) 06/17/18 15:00 Urine Nitrite Neg (Negative) 06/17/18 15:00 Urine Bilirubin Neg (Negative) 06/17/18 15:00 Urine Urobilinogen 4.0 mg/dL (<2.0) 06/17/18 15:00 Ur Leukocyte Esterase Neg (Negative) 06/17/18 15:00 Urine WBC (Auto) 2.0 /HPF (0.0-6.0) 06/17/18 15:00 Urine RBC (Auto) 3.0 /HPF (0.0-6.0) 06/17/18 15:00 U Epithel Cells (Auto) < 1.0 /HPF (0-13.0) 06/17/18 15:00 Urine Opiates Screen Presumptive negative 06/17/18 15:00 Urine Methadone Screen Presumptive negative 06/17/18 15:00 Ur Barbiturates Screen Presumptive negative 06/17/18 15:00 Ur Phencyclidine Scrn Presumptive negative 06/17/18 15:00 Ur Amphetamines Screen Presumptive positive 06/17/18 15:00 U Benzodiazepines Scrn Presumptive negative 06/17/18 15:00 Urine Cocaine Screen Presumptive positive 06/17/18 15:00 U Marijuana (THC) Screen Presumptive positive 06/17/18 15:00 Drugs of Abuse Note Disclamer 06/17/18 15:00 Plasma/Serum Alcohol < 0.01 % (0-0.07) 06/17/18 14:48
[2018-06-18] MEDS: HABITROL TD SCH (12:52)
[2018-06-18] MEDS: HALDOL IM PRN ×2 (12:54→22:20)
[2018-06-19] MEDS: ZOSYN/NS 4.5GM/100ML 4.5 GM/100 ML VIAL IV SCH ×4 (00:05→23:47)
[2018-06-19] MEDS: NEURONTIN PO SCH ×3 (05:57→21:42)
--- NOTE | 2018-06-19 10:23 | Progress Note ---
Assessment and Plan Assessment and plan: --Acute anxiety; Xanax as needed, when necessary, psychiatric evaluation --Acute psychosis/agitation Patient feels that he is not safe, agitated Psych evaluation, safety seat/1013 started --Polysubstance abuse; drug screen positive for Cocaine marijuana and amphetamines Counseling, advised to quit patient is --Ongoing tobacco use; smoking cessation counseling, nicotine patch --Chest pain; probably secondary to cocaine use EKG no acute ST-T changes, positive cardiac enzymes negative Serial cardiac enzymes, echocardiogram, cardiology consult if needed --History of PTSD; consult psych --H/O Paraplegia; supportive. Patient acute psychosis, leaving the floor, unable to follow instruction 1013 status, Psych evaluation Plan of care reviewed with the patient, his nurse and charge nurse History Interval history: Patient feels slightly better ,no new complaints 1013 status, pilot safety inspector at the bedside Vital signs reviewed Hospitalist Physical - Constitutional Vitals: Temp Pulse Resp BP Pulse Ox 98.0 F 98 H 20 145/83 100 06/18/18 12:08 06/18/18 12:08 06/18/18 20:54 06/18/18 12:08 06/19/18 07:07 General appearance: Present: no acute distress, cachectic, other (anxious) - EENT Eyes: Present: PERRL, EOM intact - Neck Neck: Present: supple, normal ROM - Respiratory Respiratory effort: normal Respiratory: bilateral: diminished, negative: rales, rhonchi, wheezing - Cardiovascular Rhythm: regular Heart Sounds: Present: S1 & S2 - Extremities Extremities: no ischemia, No edema - Abdominal General gastrointestinal: soft, non-tender, non-distended, normal bowel sounds - Integumentary Integumentary: Present: clear, warm - Psychiatric Psychiatric: appropriate mood/affect, cooperative - Neurologic Neurologic: CNII-XII intact, moves all extremities Results - Labs CBC & Chem 7: 06/19/18 15:17 06/19/18 15:17 Labs: Laboratory Last Values WBC 8.8 K/mm3 (4.5-11.0) 06/17/18 14:48 RBC 5.36 M/mm3 (3.65-5.03) H 06/17/18 14:48 Hgb 12.9 gm/dl (11.8-15.2) 06/17/18 14:48 Hct 40.7 % (35.5-45.6) 06/17/18 14:48 MCV 76 fl (84-94) L 06/17/18 14:48 MCH 24 pg (28-32) L 06/17/18 14:48 MCHC 32 % (32-34) 06/17/18 14:48 RDW 19.7 % (13.2-15.2) H 06/17/18 14:48 Plt Count 561 K/mm3 (140-440) H 06/17/18 14:48 Lymph % (Auto) 17.7 % (13.4-35.0) 06/17/18 14:48 [place] % (Auto) 5.3 % (0.0-7.3) 06/17/18 14:48 Eos % (Auto) 0.1 % (0.0-4.3) 06/17/18 14:48 Baso % (Auto) 0.5 % (0.0-1.8) 06/17/18 14:48 Lymph # 1.6 K/mm3 (1.2-5.4) 06/17/18 14:48 [place] # 0.5 K/mm3 (0.0-0.8) 06/17/18 14:48 Eos # 0.0 K/mm3 (0.0-0.4) 06/17/18 14:48 Baso # 0.0 K/mm3 (0.0-0.1) 06/17/18 14:48 Seg Neutrophils % 76.4 % (40.0-70.0) H 06/17/18 14:48 Seg Neutrophils # 6.7 K/mm3 (1.8-7.7) 06/17/18 14:48 VBG pH 7.266 (7.320-7.420) L 06/17/18 15:21 Sodium 141 mmol/L (137-145) 06/17/18 14:48 Potassium 3.2 mmol/L (3.6-5.0) L 06/17/18 14:48 Chloride 97.2 mmol/L (98-107) L 06/17/18 14:48 Carbon Dioxide 18 mmol/L (22-30) L 06/17/18 14:48 Anion Gap 29 mmol/L 06/17/18 14:48 BUN 9 mg/dL (9-20) 06/17/18 14:48 Creatinine 0.8 mg/dL (0.8-1.5) 06/17/18 14:48 Estimated GFR > 60 ml/min 06/17/18 14:48 BUN/Creatinine Ratio 11 % 06/17/18 14:48 Glucose 79 mg/dL (75-100) 06/17/18 14:48 POC Glucose 88 (70-105) 06/17/18 15:11 Lactic Acid 1.30 mmol/L (0.7-2.0) 06/18/18 05:28 Calcium 9.2 mg/dL (8.4-10.2) 06/17/18 14:48 Magnesium 2.50 mg/dL (1.7-2.3) H 06/17/18 15:21 Total Bilirubin 0.80 mg/dL (0.1-1.2) 06/17/18 14:48 AST 28 units/L (5-40) 06/17/18 14:48 ALT 18 units/L (7-56) 06/17/18 14:48 Alkaline Phosphatase 104 units/L (35-129) 06/17/18 14:48 Total Creatine Kinase 523 units/L (55-170) H 06/17/18 15:21 CK-MB (CK-2) 11.3 ng/mL (0.0-4.0) H 06/17/18 15:21 CK-MB (CK-2) Rel Index 2.1 (0-4) 06/17/18 15:21 Troponin T < 0.010 ng/mL (0.00-0.029) 06/17/18 15:21 Total Protein 9.2 g/dL (6.3-8.2) H 06/17/18 14:48 Albumin 4.1 g/dL (3.9-5) 06/17/18 14:48 Albumin/Globulin Ratio 0.8 % 06/17/18 14:48 TSH 0.652 mlU/mL (0.270-4.200) 06/17/18 15:16 Free T4 1.64 ng/dL (0.76-1.46) H 06/17/18 15:16 Urine Color Yellow (Yellow) 06/17/18 15:00 Urine Turbidity Clear (Clear) 06/17/18 15:00 Urine pH 6.0 (5.0-7.0) 06/17/18 15:00 Ur Specific [place] 1.028 (1.003-1.030) 06/17/18 15:00 Urine Protein 100 mg/dl mg/dL (Negative) 06/17/18 15:00 Urine Glucose (UA) Neg mg/dL (Negative) 06/17/18 15:00 Urine Ketones 20 mg/dL (Negative) 06/17/18 15:00 Urine Blood Neg (Negative) 06/17/18 15:00 Urine Nitrite Neg (Negative) 06/17/18 15:00 Urine Bilirubin Neg (Negative) 06/17/18 15:00 Urine Urobilinogen 4.0 mg/dL (<2.0) 06/17/18 15:00 Ur Leukocyte Esterase Neg (Negative) 06/17/18 15:00 Urine WBC (Auto) 2.0 /HPF (0.0-6.0) 06/17/18 15:00 Urine RBC (Auto) 3.0 /HPF (0.0-6.0) 06/17/18 15:00 U Epithel Cells (Auto) < 1.0 /HPF (0-13.0) 06/17/18 15:00 Urine Opiates Screen Presumptive negative 06/17/18 15:00 Urine Methadone Screen Presumptive negative 06/17/18 15:00 Ur Barbiturates Screen Presumptive negative 06/17/18 15:00 Ur Phencyclidine Scrn Presumptive negative 06/17/18 15:00 Ur Amphetamines Screen Presumptive positive 06/17/18 15:00 U Benzodiazepines Scrn Presumptive negative 06/17/18 15:00 Urine Cocaine Screen Presumptive positive 06/17/18 15:00 U Marijuana (THC) Screen Presumptive positive 06/17/18 15:00 Drugs of Abuse Note Disclamer 06/17/18 15:00 Plasma/Serum Alcohol < 0.01 % (0-0.07) 06/17/18 14:48
[2018-06-19] MEDS: HABITROL TD SCH (11:04)
[2018-06-19] MEDS: PERCOCET 5/325 PO PRN ×2 (11:05→21:45)
[2018-06-19] MEDS: SODIUM CHLORIDE FLUSH SYRINGE 10 ML IV SCH ×2 (11:06→21:43)
[2018-06-19] MEDS: ELIQUIS PO SCH ×2 (11:06→21:42)
[2018-06-19] MEDS: XANAX PO PRN (14:00)
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
[2018-06-19 15:47] LABS: Basophils % (Auto) 0.7 % (0.0-1.8); Eosinophils # (Auto) 0.1 K/mm3 (0.0-0.4); Eosinophils % (Auto) 1.5 % (0.0-4.3); Hematocrit 32.7 % (35.5-45.6); Hemoglobin 10.2 gm/dl (11.8-15.2); Lymphocytes # (Auto) 1.7 K/mm3 (1.2-5.4); Lymphocytes % (Auto) 36.5 % (13.4-35.0); Mean Corpuscular HGB Conc 31 % (32-34); Mean Corpuscular Volume 76 fl (84-94); Monocytes # (Auto) 0.3 K/mm3 (0.0-0.8); Monocytes % (Auto) 6.3 % (0.0-7.3); Platelet Count 389 K/mm3 (140-440); Red Blood Count 4.31 M/mm3 (3.65-5.03)
[2018-06-19 15:56] LABS: Mean Corpuscular Hemoglobin 24 pg (28-32)
[2018-06-19 16:02] LABS: BUN/Creatinine Ratio 5; Blood Urea Nitrogen 3 mg/dL (9-20); Calcium 8.1 mg/dL (8.4-10.2); Hemolysis Index 5
[2018-06-19] MEDS: HALDOL IM PRN (18:20)
[2018-06-19] MEDS: REMERON PO SCH (21:42)
[2018-06-20] MEDS: XANAX PO PRN ×3 (00:03→18:47)
[2018-06-20] MEDS: NEURONTIN PO SCH ×3 (05:39→21:11)
[2018-06-20] MEDS: HALDOL IM PRN ×3 (05:46→21:19)
[2018-06-20] MEDS: ZOSYN/NS 4.5GM/100ML 4.5 GM/100 ML VIAL IV SCH ×3 (08:27→23:55)
[2018-06-20] MEDS: PERCOCET 5/325 PO PRN ×3 (08:35→23:54)
[2018-06-20] MEDS: HABITROL TD SCH (10:04)
[2018-06-20] MEDS: SODIUM CHLORIDE FLUSH SYRINGE 10 ML IV SCH ×2 (10:06→21:12)
[2018-06-20] MEDS: ELIQUIS PO SCH ×2 (10:06→21:11)
[2018-06-20] MEDS ORDERED: K-DUR PO NR (11:05)
--- NOTE | 2018-06-20 11:11 | Progress Note ---
Assessment and Plan Assessment and plan: --Acute anxiety; Xanax as needed, when necessary, psychiatric evaluation --Acute psychosis/agitation Patient feels that he is not safe, agitated Psych following, safety intern/1013 status --Polysubstance abuse; drug screen positive for Cocaine marijuana and amphetamines Counseling, advised to quit patient is --Ongoing tobacco use; smoking cessation counseling, nicotine patch --Chest pain; probably secondary to cocaine use, resolved EKG no acute ST-T changes, cardiac enzymes negative --History of PTSD; consult psych --Lactic acidosis; present on admission, resolved --H/O Paraplegia; supportive. Patient acute psychosis, leaving the floor, unable to follow instruction 1013 status, Psych evaluation Plan of care reviewed with the patient, his nurse and charge nurse History Interval history: Patient seen and examined medical records reviewed Patient has no new complaints Sometimes feels depressed, not suicidal thoughts or ideation Alert and awake, cooperative Vital signs reviewed Hospitalist Physical - Constitutional Vitals: Temp Pulse Resp BP Pulse Ox 97.7 F 85 18 120/77 99 06/20/18 06:21 06/20/18 00:03 06/20/18 06:21 06/20/18 06:21 06/20/18 00:03 General appearance: Present: no acute distress, cachectic - EENT Eyes: Present: PERRL, EOM intact - Neck Neck: Present: supple, normal ROM - Respiratory Respiratory effort: normal Respiratory: negative: rales, rhonchi, wheezing - Cardiovascular Rhythm: regular Heart Sounds: Present: S1 & S2 - Extremities Extremities: no ischemia, No edema - Abdominal General gastrointestinal: soft, non-tender, non-distended, normal bowel sounds - Integumentary Integumentary: Present: clear, warm - Psychiatric Psychiatric: cooperative, no agitated, depressed - Neurologic Neurologic: other (Paraplegic) Results - Labs CBC & Chem 7: 06/19/18 15:17 06/21/18 06:40 Labs: Laboratory Last Values WBC 4.6 K/mm3 (4.5-11.0) 06/19/18 15:17 RBC 4.31 M/mm3 (3.65-5.03) 06/19/18 15:17 Hgb 10.2 gm/dl (11.8-15.2) L 06/19/18 15:17 Hct 32.7 % (35.5-45.6) L D 06/19/18 15:17 MCV 76 fl (84-94) L 06/19/18 15:17 MCH 24 pg (28-32) L 06/19/18 15:17 MCHC 31 % (32-34) L 06/19/18 15:17 RDW 20.0 % (13.2-15.2) H 06/19/18 15:17 Plt Count 389 K/mm3 (140-440) 06/19/18 15:17 Lymph % (Auto) 36.5 % (13.4-35.0) H 06/19/18 15:17 [place] % (Auto) 6.3 % (0.0-7.3) 06/19/18 15:17 Eos % (Auto) 1.5 % (0.0-4.3) 06/19/18 15:17 Baso % (Auto) 0.7 % (0.0-1.8) 06/19/18 15:17 Lymph # 1.7 K/mm3 (1.2-5.4) 06/19/18 15:17 [place] # 0.3 K/mm3 (0.0-0.8) 06/19/18 15:17 Eos # 0.1 K/mm3 (0.0-0.4) 06/19/18 15:17 Baso # 0.0 K/mm3 (0.0-0.1) 06/19/18 15:17 Seg Neutrophils % 55.0 % (40.0-70.0) 06/19/18 15:17 Seg Neutrophils # 2.5 K/mm3 (1.8-7.7) 06/19/18 15:17 VBG pH 7.266 (7.320-7.420) L 06/17/18 15:21 Sodium 138 mmol/L (137-145) 06/19/18 15:17 Potassium 3.4 mmol/L (3.6-5.0) L 06/20/18 05:58 Chloride 103.2 mmol/L (98-107) 06/19/18 15:17 Carbon Dioxide 25 mmol/L (22-30) D 06/19/18 15:17 Anion Gap 13 mmol/L 06/19/18 15:17 BUN 3 mg/dL (9-20) L 06/19/18 15:17 Creatinine 0.6 mg/dL (0.8-1.5) L 06/19/18 15:17 Estimated GFR > 60 ml/min 06/19/18 15:17 BUN/Creatinine Ratio 5 % 06/19/18 15:17 Glucose 104 mg/dL (75-100) H 06/19/18 15:17 POC Glucose 88 (70-105) 06/17/18 15:11 Lactic Acid 1.30 mmol/L (0.7-2.0) 06/18/18 05:28 Calcium 8.1 mg/dL (8.4-10.2) L 06/19/18 15:17 Magnesium 1.90 mg/dL (1.7-2.3) 06/19/18 15:17 Total Bilirubin 0.80 mg/dL (0.1-1.2) 06/17/18 14:48 AST 28 units/L (5-40) 06/17/18 14:48 ALT 18 units/L (7-56) 06/17/18 14:48 Alkaline Phosphatase 104 units/L (35-129) 06/17/18 14:48 Total Creatine Kinase 523 units/L (55-170) H 06/17/18 15:21 CK-MB (CK-2) 11.3 ng/mL (0.0-4.0) H 06/17/18 15:21 CK-MB (CK-2) Rel Index 2.1 (0-4) 06/17/18 15:21 Troponin T < 0.010 ng/mL (0.00-0.029) 06/17/18 15:21 Total Protein 9.2 g/dL (6.3-8.2) H 06/17/18 14:48 Albumin 4.1 g/dL (3.9-5) 06/17/18 14:48 Albumin/Globulin Ratio 0.8 % 06/17/18 14:48 TSH 0.652 mlU/mL (0.270-4.200) 06/17/18 15:16 Free T4 1.64 ng/dL (0.76-1.46) H 06/17/18 15:16 Urine Color Yellow (Yellow) 06/17/18 15:00 Urine Turbidity Clear (Clear) 06/17/18 15:00 Urine pH 6.0 (5.0-7.0) 06/17/18 15:00 Ur Specific [place] 1.028 (1.003-1.030) 06/17/18 15:00 Urine Protein 100 mg/dl mg/dL (Negative) 06/17/18 15:00 Urine Glucose (UA) Neg mg/dL (Negative) 06/17/18 15:00 Urine Ketones 20 mg/dL (Negative) 06/17/18 15:00 Urine Blood Neg (Negative) 06/17/18 15:00 Urine Nitrite Neg (Negative) 06/17/18 15:00 Urine Bilirubin Neg (Negative) 06/17/18 15:00 Urine Urobilinogen 4.0 mg/dL (<2.0) 06/17/18 15:00 Ur Leukocyte Esterase Neg (Negative) 06/17/18 15:00 Urine WBC (Auto) 2.0 /HPF (0.0-6.0) 06/17/18 15:00 Urine RBC (Auto) 3.0 /HPF (0.0-6.0) 06/17/18 15:00 U Epithel Cells (Auto) < 1.0 /HPF (0-13.0) 06/17/18 15:00 Urine Opiates Screen Presumptive negative 06/17/18 15:00 Urine Methadone Screen Presumptive negative 06/17/18 15:00 Ur Barbiturates Screen Presumptive negative 06/17/18 15:00 Ur Phencyclidine Scrn Presumptive negative 06/17/18 15:00 Ur Amphetamines Screen Presumptive positive 06/17/18 15:00 U Benzodiazepines Scrn Presumptive negative 06/17/18 15:00 Urine Cocaine Screen Presumptive positive 06/17/18 15:00 U Marijuana (THC) Screen Presumptive positive 06/17/18 15:00 Drugs of Abuse Note Disclamer 06/17/18 15:00 Plasma/Serum Alcohol < 0.01 % (0-0.07) 06/17/18 14:48
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
[2018-06-20] MEDS: REMERON PO SCH (21:11)
[2018-06-21] MEDS: NEURONTIN PO SCH ×3 (05:32→21:10)
[2018-06-21] MEDS: HALDOL IM PRN ×3 (05:36→19:13)
[2018-06-21] MEDS: PERCOCET 5/325 PO PRN ×2 (08:05→14:30)
[2018-06-21] MEDS: ZOSYN/NS 4.5GM/100ML 4.5 GM/100 ML VIAL IV SCH ×2 (08:06→19:13)
[2018-06-21 08:08] LABS: BUN/Creatinine Ratio 7; Blood Urea Nitrogen 5 mg/dL (9-20); Calcium 8.2 mg/dL (8.4-10.2); Hemolysis Index 56
[2018-06-21] MEDS: ELIQUIS PO SCH ×2 (09:02→21:10)
[2018-06-21] MEDS: XANAX PO PRN ×2 (09:02→16:16)
[2018-06-21] MEDS: HABITROL TD SCH (09:02)
[2018-06-21] MEDS: SODIUM CHLORIDE FLUSH SYRINGE 10 ML IV SCH ×2 (11:29→21:10)
--- NOTE | 2018-06-21 13:22 | Progress Note ---
Assessment and Plan Assessment and plan: --Acute anxiety; no new episodes of anxiety Xanax as needed, when necessary, psychiatric evaluation --Acute psychosis/agitation No agitation or aggression Psych evaluation, safety seat/1013 started --Polysubstance abuse; drug screen positive for Cocaine marijuana and amphetamines Counseling, advised to quit --Ongoing tobacco use; smoking cessation counseling, nicotine patch --Chest pain; resolved ,probably secondary to cocaine use EKG no acute ST-T changes, positive cardiac enzymes negative Serial cardiac enzymes, echocardiogram, cardiology consult if needed --History of PTSD; management per psych --H/O Paraplegia; supportive care Patient is medically stable for discharge . Disposition per psych Plan of care reviewed with the patient and his nurse Continue 1013 per psych History Interval history: Patient seen and examined medical records reviewed Safe sitter at the bedside, 1013 status Patient feels slightly better, denies suicidal thoughts No agitation or aggression Vital signs reviewed Hospitalist Physical - Constitutional Vitals: Temp Pulse Resp BP Pulse Ox 97.7 F 82 20 114/76 100 06/21/18 12:57 06/21/18 12:57 06/21/18 12:57 06/21/18 12:57 06/21/18 12:57 General appearance: Present: no acute distress, cachectic, other (anxious) - EENT Eyes: Present: PERRL, EOM intact - Neck Neck: Present: supple, normal ROM - Respiratory Respiratory effort: normal Respiratory: negative: rales, rhonchi, wheezing - Cardiovascular Rhythm: regular Heart Sounds: Present: S1 & S2 - Extremities Extremities: no ischemia, No edema, abnormal (paraplegic) - Abdominal General gastrointestinal: soft, non-tender, non-distended, normal bowel sounds - Integumentary Integumentary: Present: clear, warm - Psychiatric Psychiatric: appropriate mood/affect, cooperative - Neurologic Neurologic: other (paraplegia) Results - Labs CBC & Chem 7: 06/19/18 15:17 06/21/18 06:40 Labs: Laboratory Last Values WBC 4.6 K/mm3 (4.5-11.0) 06/19/18 15:17 RBC 4.31 M/mm3 (3.65-5.03) 06/19/18 15:17 Hgb 10.2 gm/dl (11.8-15.2) L 06/19/18 15:17 Hct 32.7 % (35.5-45.6) L D 06/19/18 15:17 MCV 76 fl (84-94) L 06/19/18 15:17 MCH 24 pg (28-32) L 06/19/18 15:17 MCHC 31 % (32-34) L 06/19/18 15:17 RDW 20.0 % (13.2-15.2) H 06/19/18 15:17 Plt Count 389 K/mm3 (140-440) 06/19/18 15:17 Lymph % (Auto) 36.5 % (13.4-35.0) H 06/19/18 15:17 [place] % (Auto) 6.3 % (0.0-7.3) 06/19/18 15:17 Eos % (Auto) 1.5 % (0.0-4.3) 06/19/18 15:17 Baso % (Auto) 0.7 % (0.0-1.8) 06/19/18 15:17 Lymph # 1.7 K/mm3 (1.2-5.4) 06/19/18 15:17 [place] # 0.3 K/mm3 (0.0-0.8) 06/19/18 15:17 Eos # 0.1 K/mm3 (0.0-0.4) 06/19/18 15:17 Baso # 0.0 K/mm3 (0.0-0.1) 06/19/18 15:17 Seg Neutrophils % 55.0 % (40.0-70.0) 06/19/18 15:17 Seg Neutrophils # 2.5 K/mm3 (1.8-7.7) 06/19/18 15:17 VBG pH 7.266 (7.320-7.420) L 06/17/18 15:21 Sodium 139 mmol/L (137-145) 06/21/18 06:40 Potassium 4.0 mmol/L (3.6-5.0) 06/21/18 06:40 Chloride 102.5 mmol/L (98-107) 06/21/18 06:40 Carbon Dioxide 27 mmol/L (22-30) 06/21/18 06:40 Anion Gap 14 mmol/L 06/21/18 06:40 BUN 5 mg/dL (9-20) L 06/21/18 06:40 Creatinine 0.7 mg/dL (0.8-1.5) L 06/21/18 06:40 Estimated GFR > 60 ml/min 06/21/18 06:40 BUN/Creatinine Ratio 7 % 06/21/18 06:40 Glucose 73 mg/dL (75-100) L 06/21/18 06:40 POC Glucose 88 (70-105) 06/17/18 15:11 Lactic Acid 1.30 mmol/L (0.7-2.0) 06/18/18 05:28 Calcium 8.2 mg/dL (8.4-10.2) L 06/21/18 06:40 Magnesium 1.90 mg/dL (1.7-2.3) 06/19/18 15:17 Total Bilirubin 0.80 mg/dL (0.1-1.2) 06/17/18 14:48 AST 28 units/L (5-40) 06/17/18 14:48 ALT 18 units/L (7-56) 06/17/18 14:48 Alkaline Phosphatase 104 units/L (35-129) 06/17/18 14:48 Total Creatine Kinase 523 units/L (55-170) H 06/17/18 15:21 CK-MB (CK-2) 11.3 ng/mL (0.0-4.0) H 06/17/18 15:21 CK-MB (CK-2) Rel Index 2.1 (0-4) 06/17/18 15:21 Troponin T < 0.010 ng/mL (0.00-0.029) 06/17/18 15:21 Total Protein 9.2 g/dL (6.3-8.2) H 06/17/18 14:48 Albumin 4.1 g/dL (3.9-5) 06/17/18 14:48 Albumin/Globulin Ratio 0.8 % 06/17/18 14:48 TSH 0.652 mlU/mL (0.270-4.200) 06/17/18 15:16 Free T4 1.64 ng/dL (0.76-1.46) H 06/17/18 15:16 Urine Color Yellow (Yellow) 06/17/18 15:00 Urine Turbidity Clear (Clear) 06/17/18 15:00 Urine pH 6.0 (5.0-7.0) 06/17/18 15:00 Ur Specific [place] 1.028 (1.003-1.030) 06/17/18 15:00 Urine Protein 100 mg/dl mg/dL (Negative) 06/17/18 15:00 Urine Glucose (UA) Neg mg/dL (Negative) 06/17/18 15:00 Urine Ketones 20 mg/dL (Negative) 06/17/18 15:00 Urine Blood Neg (Negative) 06/17/18 15:00 Urine Nitrite Neg (Negative) 06/17/18 15:00 Urine Bilirubin Neg (Negative) 06/17/18 15:00 Urine Urobilinogen 4.0 mg/dL (<2.0) 06/17/18 15:00 Ur Leukocyte Esterase Neg (Negative) 06/17/18 15:00 Urine WBC (Auto) 2.0 /HPF (0.0-6.0) 06/17/18 15:00 Urine RBC (Auto) 3.0 /HPF (0.0-6.0) 06/17/18 15:00 U Epithel Cells (Auto) < 1.0 /HPF (0-13.0) 06/17/18 15:00 Urine Opiates Screen Presumptive negative 06/17/18 15:00 Urine Methadone Screen Presumptive negative 06/17/18 15:00 Ur Barbiturates Screen Presumptive negative 06/17/18 15:00 Ur Phencyclidine Scrn Presumptive negative 06/17/18 15:00 Ur Amphetamines Screen Presumptive positive 06/17/18 15:00 U Benzodiazepines Scrn Presumptive negative 06/17/18 15:00 Urine Cocaine Screen Presumptive positive 06/17/18 15:00 U Marijuana (THC) Screen Presumptive positive 06/17/18 15:00 Drugs of Abuse Note Disclamer 06/17/18 15:00 Plasma/Serum Alcohol < 0.01 % (0-0.07) 06/17/18 14:48
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
[2018-06-21] MEDS: REMERON PO SCH (21:10)
[2018-06-22] MEDS: NEURONTIN PO SCH ×3 (06:14→21:12)
[2018-06-22] MEDS: XANAX PO PRN ×2 (06:14→16:17)
[2018-06-22] MEDS: PERCOCET 5/325 PO PRN ×3 (07:44→15:30)
[2018-06-22] MEDS: ZOSYN/NS 4.5GM/100ML 4.5 GM/100 ML VIAL IV SCH ×4 (07:45→23:56)
[2018-06-22] MEDS: SODIUM CHLORIDE FLUSH SYRINGE 10 ML IV SCH ×2 (10:44→21:12)
[2018-06-22] MEDS: ELIQUIS PO SCH ×2 (10:44→21:12)
[2018-06-22] MEDS: HABITROL TD SCH (10:44)
[2018-06-22] MEDS: HALDOL IM PRN ×2 (12:36→18:21)
--- NOTE | 2018-06-22 19:24 | Progress Note ---
Assessment and Plan Assessment and plan: --Acute anxiety; no new episodes of anxiety Xanax as needed, when necessary, psychiatric evaluation --Acute psychosis/agitation No agitation or aggression Psych recinded 1013 --Polysubstance abuse; drug screen positive for Cocaine marijuana and amphetamines Counseling, advised to quit --Right hip decubitus/multiple pressure ulcers Continue wound care, outpatient wound care as recommended Consider surgical evaluation if needed --Ongoing tobacco use; smoking cessation counseling, nicotine patch --Chest pain; resolved ,probably secondary to cocaine use EKG no acute ST-T changes, positive cardiac enzymes negative Serial cardiac enzymes, echocardiogram, cardiology consult if needed --History of PTSD; management per psych --H/O Paraplegia; supportive care Patient is medically stable for discharge . Disposition per psych Plan of care reviewed with the patient and his nurse Continue 1013 per psych History Interval history: Patient seen and examined medical records reviewed Feels better no new complaints Vital signs noted Psych rescinded 1013 Patient, and quiet, no agitation or aggression Hospitalist Physical - Constitutional Vitals: Temp Pulse Resp BP Pulse Ox 97.7 F 82 18 114/76 100 06/21/18 12:57 06/21/18 12:57 06/22/18 16:30 06/21/18 12:57 06/21/18 12:57 General appearance: Present: no acute distress, cachectic, other (anxious) - EENT Eyes: Present: PERRL, EOM intact - Neck Neck: Present: supple, normal ROM - Cardiovascular Rhythm: regular Heart Sounds: Present: S1 & S2 - Extremities Extremities: abnormal (multiple pressure ulcers of different stages) - Abdominal General gastrointestinal: soft, non-tender, non-distended, normal bowel sounds - Integumentary Integumentary: Present: clear, warm - Psychiatric Psychiatric: cooperative - Neurologic Neurologic: other (paraplegia) Results - Labs CBC & Chem 7: 06/19/18 15:17 06/21/18 06:40 Labs: Laboratory Last Values WBC 4.6 K/mm3 (4.5-11.0) 06/19/18 15:17 RBC 4.31 M/mm3 (3.65-5.03) 06/19/18 15:17 Hgb 10.2 gm/dl (11.8-15.2) L 06/19/18 15:17 Hct 32.7 % (35.5-45.6) L D 06/19/18 15:17 MCV 76 fl (84-94) L 06/19/18 15:17 MCH 24 pg (28-32) L 06/19/18 15:17 MCHC 31 % (32-34) L 06/19/18 15:17 RDW 20.0 % (13.2-15.2) H 06/19/18 15:17 Plt Count 389 K/mm3 (140-440) 06/19/18 15:17 Lymph % (Auto) 36.5 % (13.4-35.0) H 06/19/18 15:17 [place] % (Auto) 6.3 % (0.0-7.3) 06/19/18 15:17 Eos % (Auto) 1.5 % (0.0-4.3) 06/19/18 15:17 Baso % (Auto) 0.7 % (0.0-1.8) 06/19/18 15:17 Lymph # 1.7 K/mm3 (1.2-5.4) 06/19/18 15:17 [place] # 0.3 K/mm3 (0.0-0.8) 06/19/18 15:17 Eos # 0.1 K/mm3 (0.0-0.4) 06/19/18 15:17 Baso # 0.0 K/mm3 (0.0-0.1) 06/19/18 15:17 Seg Neutrophils % 55.0 % (40.0-70.0) 06/19/18 15:17 Seg Neutrophils # 2.5 K/mm3 (1.8-7.7) 06/19/18 15:17 VBG pH 7.266 (7.320-7.420) L 06/17/18 15:21 Sodium 139 mmol/L (137-145) 06/21/18 06:40 Potassium 4.0 mmol/L (3.6-5.0) 06/21/18 06:40 Chloride 102.5 mmol/L (98-107) 06/21/18 06:40 Carbon Dioxide 27 mmol/L (22-30) 06/21/18 06:40 Anion Gap 14 mmol/L 06/21/18 06:40 BUN 5 mg/dL (9-20) L 06/21/18 06:40 Creatinine 0.7 mg/dL (0.8-1.5) L 06/21/18 06:40 Estimated GFR > 60 ml/min 06/21/18 06:40 BUN/Creatinine Ratio 7 % 06/21/18 06:40 Glucose 73 mg/dL (75-100) L 06/21/18 06:40 POC Glucose 88 (70-105) 06/17/18 15:11 Lactic Acid 1.30 mmol/L (0.7-2.0) 06/18/18 05:28 Calcium 8.2 mg/dL (8.4-10.2) L 06/21/18 06:40 Magnesium 1.90 mg/dL (1.7-2.3) 06/19/18 15:17 Total Bilirubin 0.80 mg/dL (0.1-1.2) 06/17/18 14:48 AST 28 units/L (5-40) 06/17/18 14:48 ALT 18 units/L (7-56) 06/17/18 14:48 Alkaline Phosphatase 104 units/L (35-129) 06/17/18 14:48 Total Creatine Kinase 523 units/L (55-170) H 06/17/18 15:21 CK-MB (CK-2) 11.3 ng/mL (0.0-4.0) H 06/17/18 15:21 CK-MB (CK-2) Rel Index 2.1 (0-4) 06/17/18 15:21 Troponin T < 0.010 ng/mL (0.00-0.029) 06/17/18 15:21 Total Protein 9.2 g/dL (6.3-8.2) H 06/17/18 14:48 Albumin 4.1 g/dL (3.9-5) 06/17/18 14:48 Albumin/Globulin Ratio 0.8 % 06/17/18 14:48 TSH 0.652 mlU/mL (0.270-4.200) 06/17/18 15:16 Free T4 1.64 ng/dL (0.76-1.46) H 06/17/18 15:16 Urine Color Yellow (Yellow) 06/17/18 15:00 Urine Turbidity Clear (Clear) 06/17/18 15:00 Urine pH 6.0 (5.0-7.0) 06/17/18 15:00 Ur Specific [place] 1.028 (1.003-1.030) 06/17/18 15:00 Urine Protein 100 mg/dl mg/dL (Negative) 06/17/18 15:00 Urine Glucose (UA) Neg mg/dL (Negative) 06/17/18 15:00 Urine Ketones 20 mg/dL (Negative) 06/17/18 15:00 Urine Blood Neg (Negative) 06/17/18 15:00 Urine Nitrite Neg (Negative) 06/17/18 15:00 Urine Bilirubin Neg (Negative) 06/17/18 15:00 Urine Urobilinogen 4.0 mg/dL (<2.0) 06/17/18 15:00 Ur Leukocyte Esterase Neg (Negative) 06/17/18 15:00 Urine WBC (Auto) 2.0 /HPF (0.0-6.0) 06/17/18 15:00 Urine RBC (Auto) 3.0 /HPF (0.0-6.0) 06/17/18 15:00 U Epithel Cells (Auto) < 1.0 /HPF (0-13.0) 06/17/18 15:00 Urine Opiates Screen Presumptive negative 06/17/18 15:00 Urine Methadone Screen Presumptive negative 06/17/18 15:00 Ur Barbiturates Screen Presumptive negative 06/17/18 15:00 Ur Phencyclidine Scrn Presumptive negative 06/17/18 15:00 Ur Amphetamines Screen Presumptive positive 06/17/18 15:00 U Benzodiazepines Scrn Presumptive negative 06/17/18 15:00 Urine Cocaine Screen Presumptive positive 06/17/18 15:00 U Marijuana (THC) Screen Presumptive positive 06/17/18 15:00 Drugs of Abuse Note Disclamer 06/17/18 15:00 Plasma/Serum Alcohol < 0.01 % (0-0.07) 06/17/18 14:48
[2018-06-22] MEDS: REMERON PO SCH (21:11)
[2018-06-22] MEDS: CLEOCIN PO SCH (21:12)
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
[2018-06-23] MEDS: NEURONTIN PO SCH (05:21)
[2018-06-23] MEDS: XANAX PO PRN (05:47)
[2018-06-23] MEDS: PERCOCET 5/325 PO PRN (05:47)
[2018-06-23 06:04] VITALS: BP 109/69
[2018-06-23] MEDS: ZOSYN/NS 4.5GM/100ML 4.5 GM/100 ML VIAL IV SCH (09:28)
[2018-06-23] MEDS: HABITROL TD SCH (10:44)
[2018-06-23] MEDS: ELIQUIS PO SCH (10:50)
[2018-06-23] MEDS: CLEOCIN PO SCH (10:50)
[2018-06-23] MEDS: SODIUM CHLORIDE FLUSH SYRINGE 10 ML IV SCH (10:52)
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
== END 2018-06-23 12:59 | disposition home health service (06) | DRG 70 ==
LOC: ED 14:19 → 3A 19:53
PROVIDERS: ADMIT Internal Medicine; ATTEND Internal Medicine
DX: G93.41 Metabolic encephalopathy (principal); E43 Unspecified severe protein-calorie malnutrition; I95.9 Hypotension, unspecified; F14.10 Cocaine abuse, uncomplicated; E87.2 Acidosis; F15.10 Other stimulant abuse, uncomplicated; R65.10 Systemic inflammatory response syndrome (SIRS) of non-infectious origin without acute organ dysfunction; L89.309 Pressure ulcer of unspecified buttock, unspecified stage; F43.10 Post-traumatic stress disorder, unspecified; G82.20 Paraplegia, unspecified; X58.XXXA Exposure to other specified factors, initial encounter; F17.210 Nicotine dependence, cigarettes, uncomplicated; L89.219 Pressure ulcer of right hip, unspecified stage; L89.159 Pressure ulcer of sacral region, unspecified stage; F32.9 Major depressive disorder, single episode, unspecified; F12.90 Cannabis use, unspecified, uncomplicated; E87.6 Hypokalemia; F41.9 Anxiety disorder, unspecified; Z71.6 Tobacco abuse counseling; Z93.3 Colostomy status; Z68.45 Body mass index [BMI] 70 or greater, adult; Y93.89 Activity, other specified; Y92.89 Other specified places as the place of occurrence of the external cause; Y99.8 Other external cause status; Z79.01 Long term (current) use of anticoagulants; Z82.49 Family history of ischemic heart disease and other diseases of the circulatory system; Z88.5 Allergy status to narcotic agent; Z79.899 Other long term (current) drug therapy; Z71.51 Drug abuse counseling and surveillance of drug abuser; Z86.718 Personal history of other venous thrombosis and embolism
CPT/HCPCS: 36415; 70450; 71045; 74177; 80048; 80053; 80307; 80320; 81001; 82140; 82550; 82553; 82805; 82962; 83735; 84132; 84439; 84443; 84484; 85025; 87040; 87086; 93005; 93010; 96361; 96365; 96366; 96367; 96372; 99406; G0480; J1630; J2543; J3370; J3486; J7030; Q9967

== ENCOUNTER 2018-07-07 13:44 | Emergency (ER) | payer MEDICAID ==
[2018-07-07] MEDS ORDERED: ATIVAN IM STA (14:39)
[2018-07-07] MEDS ORDERED: TYLENOL PO ONE (14:39)
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
[2018-07-07] MEDS ORDERED: PERCOCET 5/325 PO ONE (17:03)
[2018-07-07 17:12] VITALS: BP 140/69
== END 2018-07-07 17:21 | disposition home or self-care (01) ==
LOC: ED 13:44
DX: F41.9 Anxiety disorder, unspecified (principal); Z76.0 Encounter for issue of repeat prescription; F43.10 Post-traumatic stress disorder, unspecified; F17.200 Nicotine dependence, unspecified, uncomplicated; Z86.718 Personal history of other venous thrombosis and embolism; Z88.6 Allergy status to analgesic agent
CPT/HCPCS: 96372; 99283; J2060

== ENCOUNTER 2018-10-11 16:31 | Emergency (ER) | payer MEDICAID, MEDICARE ==
[2018-10-11] MEDS ORDERED: NACL 0.9% 1000 ML IV ONE (16:40)
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
[2018-10-11 17:02] LABS: Basophils # (Auto) 0.1 K/mm3 (0.0-0.1); Basophils % (Auto) 1.6 % (0.0-1.8); Eosinophils % (Auto) 0.3 % (0.0-4.3); Hematocrit 36.4 % (35.5-45.6); Hemoglobin 11.3 gm/dl (11.8-15.2); Lymphocytes # (Auto) 0.7 K/mm3 (1.2-5.4); Lymphocytes % (Auto) 8.9 % (13.4-35.0); Mean Corpuscular HGB Conc 31 % (32-34); Mean Corpuscular Volume 72 fl (84-94); Monocytes # (Auto) 0.4 K/mm3 (0.0-0.8); Monocytes % (Auto) 5.8 % (0.0-7.3); Platelet Count 739 K/mm3 (140-440); Red Blood Count 5.09 M/mm3 (3.65-5.03); Red Cell Distribution Width 19.3 % (13.2-15.2)
[2018-10-11 17:11] LABS: Partial Thromboplastin Time 37.4 Sec. (24.2-36.6)
[2018-10-11] MEDS ORDERED: PERCOCET 5/325 PO ONE (17:15)
[2018-10-11 17:18] LABS: Creatine Kinase MB 1.5 ng/mL (0.0-4.0)
[2018-10-11 17:21] LABS: Alanine Aminotransferase 9 units/L (7-56); Albumin 4.1 g/dL (3.9-5); BUN/Creatinine Ratio 16; Blood Urea Nitrogen 8 mg/dL (9-20); Calcium 9.3 mg/dL (8.4-10.2); Hemolysis Index 0
[2018-10-11 17:48] LABS: INR 0.98 (0.87-1.13)
--- NOTE | 2018-10-11 17:54 | XRay Report ---
FINAL REPORT EXAM: XR CHEST 1V AP HISTORY: possible sepsis COMPARISON: August 2018. FINDINGS: Frontal view(s) of the chest obtained. Cardiac silhouette within normal limits. No gross consolidatio n or effusion. No pneumothorax. Remote, healed left-sided rib fractures. IMPRESSION: No grossly acute findings.
[2018-10-11] MEDS ORDERED: BENADRYL IV ONE (20:04)
[2018-10-11] MEDS ORDERED: NACL 0.9% 1000 ML 1,000 ML IV ONE (20:13)
[2018-10-11] MEDS ORDERED: DILAUDID IV ONE (20:48)
[2018-10-11] MEDS ORDERED: ZOFRAN IV ONE (20:48)
[2018-10-11] MEDS ORDERED: DILAUDID ONE (20:51)
[2018-10-11 20:52] LABS: Benzodiazepines Screen,Urine PRESUMPTIVE NEGATIVE; Cocaine Screen,Urine PRESUMPTIVE NEGATIVE; Methadone Screen,Urine PRESUMPTIVE NEGATIVE; Opiate Screen,Urine PRESUMPTIVE NEGATIVE
[2018-10-11] MEDS ORDERED: ZOFRAN ONE (20:52)
[2018-10-11 20:54] LABS: Bilirubin,Urine NEG (Negative); Blood,Urine SM (Negative); Color,Urine Yellow (Yellow); Mucus,Urine FEW /HPF; Protein,Urine <15 mg/dL mg/dL (Negative); WBC,Urine < 1.0 /HPF (0.0-6.0)
[2018-10-11 21:18] LABS: Amphetamine Screen,Urine PRESUMPTIVE POSITIVE; Cannabinoid Screen,Urine PRESUMPTIVE POSITIVE
--- NOTE | 2018-10-11 21:50 | Cat Scan Report ---
FINAL REPORT EXAM: CT ANGIO CHEST HISTORY: cp, tachycardia COMPARISON: Chest x-ray from the same date. CT chest from March 2016. TECHNIQUE: Contiguous axial images were obtained. Additional sagittal and coronal reformatted images were obtained. Administration of IV contrast given per institution protocol. Images submitted for in terpretation. FINDINGS: Heart normal in size. Thoracic aorta normal in caliber. No acute dissection or rupture. No pulmonary embolus. No pathologically enlarged intrathoracic or axillary lymph nodes. No focal consolidation or pleural effusion. Remote, healed posterior left 7th rib fracture. Mild pleural thickening adjacent to the rib fracture. Thoracic vertebral body heights are preserved. Small metallic fragments remain at the T5 level. Visualized upper abdomen is grossly unremarkable. IMPRESSION: No pulmonary embolus. No acute infiltrates or effusions.
[2018-10-11] MEDS ORDERED: XANAX PO ONE (22:29)
[2018-10-12 04:55] VITALS: BP 116/78
== END 2018-10-12 04:56 | disposition home or self-care (01) ==
LOC: ED 16:31
DX: E86.0 Dehydration (principal); R00.0 Tachycardia, unspecified; L89.159 Pressure ulcer of sacral region, unspecified stage; F15.10 Other stimulant abuse, uncomplicated; F43.10 Post-traumatic stress disorder, unspecified; I20.9 Angina pectoris, unspecified; F17.200 Nicotine dependence, unspecified, uncomplicated; F12.10 Cannabis abuse, uncomplicated; F14.10 Cocaine abuse, uncomplicated; Z86.718 Personal history of other venous thrombosis and embolism; Z88.6 Allergy status to analgesic agent
CPT/HCPCS: 36415; 71045; 71275; 80053; 80307; 81001; 82140; 82550; 82553; 82805; 84484; 85025; 85610; 85730; 87040; 93005; 93010; 96361; 96374; 96375; 99285; J1170; J1200; J2405; J7030; Q9967; J0153

== ENCOUNTER 2018-10-21 18:52 | Emergency (ER) | payer MEDICAID ==
[2018-10-21] MEDS ORDERED: NACL 0.9% 1000 ML IV ONE (20:15)
[2018-10-21] MEDS ORDERED: ZOFRAN IV ONE (20:17)
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
[2018-10-21 20:51] LABS: Basophils # (Auto) 0.1 K/mm3 (0.0-0.1); Basophils % (Auto) 0.8 % (0.0-1.8); Eosinophils # (Auto) 0.1 K/mm3 (0.0-0.4); Eosinophils % (Auto) 1.8 % (0.0-4.3); Hematocrit 31.3 % (35.5-45.6); Hemoglobin 9.4 gm/dl (11.8-15.2); Lymphocytes # (Auto) 1.4 K/mm3 (1.2-5.4); Mean Corpuscular HGB Conc 30 % (32-34); Mean Corpuscular Volume 71 fl (84-94); Monocytes # (Auto) 0.8 K/mm3 (0.0-0.8); Monocytes % (Auto) 11.6 % (0.0-7.3); Platelet Count 621 K/mm3 (140-440); Red Blood Count 4.38 M/mm3 (3.65-5.03); Red Cell Distribution Width 19.1 % (13.2-15.2)
[2018-10-21 21:21] LABS: Alanine Aminotransferase 6 units/L (7-56); Albumin 3.3 g/dL (3.9-5); BUN/Creatinine Ratio 24; Blood Urea Nitrogen 19 mg/dL (9-20); Calcium 8.4 mg/dL (8.4-10.2); Hemolysis Index 0
[2018-10-21 21:53] LABS: Bilirubin,Urine NEG (Negative); Blood,Urine NEG (Negative); Cocaine Screen,Urine PRESUMPTIVE NEGATIVE; Color,Urine Amber (Yellow); Methadone Screen,Urine PRESUMPTIVE NEGATIVE; Mucus,Urine 3+ /HPF; Opiate Screen,Urine PRESUMPTIVE NEGATIVE
[2018-10-21 22:07] LABS: Amphetamine Screen,Urine PRESUMPTIVE POSITIVE; Benzodiazepines Screen,Urine PRESUMPTIVE POSITIVE; Cannabinoid Screen,Urine PRESUMPTIVE POSITIVE
[2018-10-21 22:33] VITALS: BP 97/52
[2018-10-21] MEDS ORDERED: NORCO 5/325 PO ONE (22:55)
== END 2018-10-21 23:40 | disposition home or self-care (01) ==
LOC: ED 18:52
DX: L89.159 Pressure ulcer of sacral region, unspecified stage (principal); F19.10 Other psychoactive substance abuse, uncomplicated; F43.10 Post-traumatic stress disorder, unspecified; F17.200 Nicotine dependence, unspecified, uncomplicated
CPT/HCPCS: 36415; 80053; 80307; 81001; 82140; 85025; 85730; 87040; 96374; 99284; J2405; J7030

== ENCOUNTER 2018-10-26 10:36 | Emergency (ER) | payer MEDICAID ==
[2018-10-26] MEDS ORDERED: TORADOL IM ONE (12:23)
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
[2018-10-26] MEDS ORDERED: PERCOCET 5/325 PO ONE (13:59)
[2018-10-26] MEDS ORDERED: PERCOCET 5/325 ONE (14:00)
[2018-10-26 15:28] VITALS: BP 121/79
== END 2018-10-26 13:01 | disposition home or self-care (01) ==
LOC: ED 10:36
DX: K94.03 Colostomy malfunction (principal); M54.89 Other dorsalgia; F43.10 Post-traumatic stress disorder, unspecified; I20.9 Angina pectoris, unspecified; F17.200 Nicotine dependence, unspecified, uncomplicated; Z86.718 Personal history of other venous thrombosis and embolism; Z88.6 Allergy status to analgesic agent
CPT/HCPCS: 96372; 99282; J1885; 99281

== ENCOUNTER 2018-10-26 16:28 | Emergency (ER) | payer MEDICAID ==
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
== END 2018-10-26 18:03 | disposition left against medical advice (07) ==
LOC: ED 16:28
DX: Z76.0 Encounter for issue of repeat prescription (principal)
CPT/HCPCS: 99281

== ENCOUNTER 2018-10-26 18:22 | Emergency (ER) | payer MEDICAID ==
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
== END 2018-10-26 18:54 | disposition home or self-care (01) ==
LOC: ED 18:22
CPT/HCPCS: 99282

== ENCOUNTER 2018-11-26 23:00 | Emergency (ER) | payer MEDICAID ==
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
== END 2018-11-27 04:52 | disposition home or self-care (01) ==
LOC: ED 23:00
CPT/HCPCS: 99283

== ENCOUNTER 2019-01-07 16:29 | Emergency (ER) | payer MEDICAID ==
--- NOTE | 2019-01-07 16:35 | Emergency Department Report ---
Blank Doc - Documentation Documentation: This is a 23-year-old male that presents with bed sore pains. This initial assessment/diagnostic orders/clinical plan/treatment(s) is/are subject to change based on patient's health status, clinical progression and re- assessment by fellow clinical providers in the ED. Further treatment and workup at subsequent clinical providers discretion. Patient/guardians urged not to elope from the ED as their condition may be serious if not clinically assessed and managed. Initial orders include: 1- Patient sent to [facility] for further evaluation and treatment
[2019-01-07 16:48] VITALS: BP 120/80
[2019-01-07] MEDS ORDERED: PERCOCET 5/325 PO ONE (17:23)
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
== END 2019-01-07 18:15 | disposition home or self-care (01) ==
LOC: ED 16:29
DX: L89.303 Pressure ulcer of unspecified buttock, stage 3 (principal); F43.10 Post-traumatic stress disorder, unspecified; F17.200 Nicotine dependence, unspecified, uncomplicated
CPT/HCPCS: 99282

== ENCOUNTER 2019-02-20 12:28 | Emergency (ER) | payer MEDICAID | END 2019-02-20 13:57 | disposition left against medical advice (07) | LOC: ED 12:28 | DX: R42 Dizziness and giddiness (principal); Z53.21 Procedure and treatment not carried out due to patient leaving prior to being seen by health care provider ==

== ENCOUNTER 2019-03-01 17:47 | Emergency (ER) | payer MEDICAID ==
[2019-03-01] MEDS ORDERED: ASPIRIN PO ONE (18:09)
[2019-03-01] MEDS ORDERED: ATIVAN IV ONE ×2 (18:13→19:54)
[2019-03-01] MEDS ORDERED: NACL 0.9% 1000 ML 1,000 ML IV ONE ×3 (18:13→21:43)
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
[2019-03-01 18:48] LABS: INR 1.03 (0.87-1.13); Partial Thromboplastin Time 34.3 Sec. (24.2-36.6)
--- NOTE | 2019-03-01 18:57 | XRay Report ---
PROCEDURE: XR CHEST 1V AP TECHNIQUE: Chest radiograph single view. HISTORY: Chest Pain COMPARISONS: 12/23/2018 . FINDINGS: No infiltrate, pleural effusion, or pneumothorax seen. The cardiomediastinal silhouette is normal. IMPRESSION: No acute cardiopulmonary abnormality. This document is electronically signed by Buddy Ames MD., March 01 2019 06:55:16 PM ET
[2019-03-01 19:04] LABS: BUN/Creatinine Ratio 15; Blood Urea Nitrogen 9 mg/dL (9-20); Calcium 9.1 mg/dL (8.4-10.2); Creatine Kinase MB 2.9 ng/mL (0.0-4.0); Hemolysis Index 52
[2019-03-01] MEDS ORDERED: GEODON IM ONE (19:06)
[2019-03-01 19:27] LABS: Free T4 (Free Thyroxine) 1.09 ng/dL (0.76-1.46)
[2019-03-01 19:59] LABS: Hemoglobin 11.9 gm/dl (11.8-15.2); Mean Corpuscular HGB Conc 32 % (32-34); Mean Corpuscular Volume 72 fl (84-94); Platelet Count 652 K/mm3 (140-440); Red Blood Count 5.15 M/mm3 (3.65-5.03)
[2019-03-01 20:00] LABS: Red Cell Distribution Width 28.3 % (13.2-15.2)
[2019-03-01 20:47] LABS: Anisocytosis 3+; Eosinophils % (Manual) 0 % (0.0-4.3); Monocytes % (Manual) 0 % (0.0-7.3); Total Cells Counted 100
[2019-03-01 20:48] LABS: Hypochromasia 2+; Ovalocytes Few; Platelet Estimate Appears Increased
[2019-03-01 23:28] LABS: Benzodiazepines Screen,Urine PRESUMPTIVE NEGATIVE; Cocaine Screen,Urine PRESUMPTIVE NEGATIVE; Methadone Screen,Urine PRESUMPTIVE NEGATIVE; Opiate Screen,Urine PRESUMPTIVE NEGATIVE
[2019-03-01 23:56] LABS: Amphetamine Screen,Urine PRESUMPTIVE POSITIVE; Cannabinoid Screen,Urine PRESUMPTIVE POSITIVE
[2019-03-01 23:58] VITALS: BP 112/71
[2019-03-02] MEDS ORDERED: HALDOL PO ONE (00:32)
[2019-03-02] MEDS ORDERED: ATIVAN PO ONE (00:32)
== END 2019-03-02 03:52 | disposition home or self-care (01) ==
LOC: ED 17:47
DX: F15.10 Other stimulant abuse, uncomplicated (principal); F12.10 Cannabis abuse, uncomplicated; F13.10 Sedative, hypnotic or anxiolytic abuse, uncomplicated; F11.10 Opioid abuse, uncomplicated; G82.20 Paraplegia, unspecified; L89.90 Pressure ulcer of unspecified site, unspecified stage; I20.9 Angina pectoris, unspecified; Z88.5 Allergy status to narcotic agent; Z59.0 Homelessness; Z93.3 Colostomy status; Z79.1 Long term (current) use of non-steroidal anti-inflammatories (NSAID); Z79.899 Other long term (current) drug therapy; Z86.718 Personal history of other venous thrombosis and embolism; Z79.01 Long term (current) use of anticoagulants
CPT/HCPCS: 36415; 71045; 80048; 80307; 82550; 82553; 83735; 84439; 84443; 84484; 85007; 85025; 85610; 85730; 93005; 93010; 96372; 96374; 96376; 99285; G0480; J2060; J3486; J7030; 80320

== ENCOUNTER 2019-03-02 04:11 | Emergency (ER) | payer MEDICAID ==
[2019-03-02 04:22] VITALS: BP 125/86
[2019-03-02] MEDS ORDERED: ZOFRAN ODT PO PRN (06:59)
[2019-03-02] MEDS ORDERED: XANAX PO PRN (06:59)
[2019-03-02] MEDS ORDERED: NEURONTIN PO SCH (07:00)
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
[2019-03-02] MEDS ORDERED: ZOLOFT PO SCH (10:00)
[2019-03-02] MEDS ORDERED: IBUPROFEN PO SCH (14:00)
== END 2019-03-02 07:58 | disposition home or self-care (01) ==
LOC: ED 04:11
DX: G89.29 Other chronic pain (principal); M76.02 Gluteal tendinitis, left hip; G82.20 Paraplegia, unspecified; F11.20 Opioid dependence, uncomplicated; I20.9 Angina pectoris, unspecified; F17.200 Nicotine dependence, unspecified, uncomplicated; F12.10 Cannabis abuse, uncomplicated; Z88.5 Allergy status to narcotic agent; Z59.0 Homelessness; Z86.718 Personal history of other venous thrombosis and embolism; Z79.01 Long term (current) use of anticoagulants; Z98.890 Other specified postprocedural states; Z93.3 Colostomy status
CPT/HCPCS: 36415; 71045; 80048; 80307; 80320; 82550; 82553; 83735; 84439; 84443; 84484; 85007; 85025; 85610; 85730; 93005; 93010; 96372; 96374; 96376; 99283; G0480; J2060; J3486; J7030

== ENCOUNTER 2019-05-06 12:53 | Emergency (ER) | payer MEDICAID ==
[2019-05-06 13:09] VITALS: BP 104/54
--- NOTE | 2019-05-06 13:09 | Event Note ---
ED Screening Note Date of service: 05/06/19 Time: 13:05 ED Screening Note: This is a 24 y.o. M. that presents to the ER with a pressure ulcer to left buttock that is worsening. Patient is followed by wound care with packing and wet to dry dressing. Reports pain worse than usual. This initial assessment/diagnostic orders/clinical plan/treatment(s) is/are subject to change based on patients health status, clinical progression and re- assessment by fellow clinical providers in the ED. Further treatment and workup at subsequent clinical providers discretion. Patient/guardian urged not to elope from the ED as their condition may be serious if not clinically assessed and managed. Initial orders include: ACC for further evaluation.
[2019-05-06] MEDS ORDERED: PERCOCET 5/325 PO ONE (15:08)
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
== END 2019-05-06 15:26 | disposition home or self-care (01) ==
LOC: ED 12:53
DX: G89.29 Other chronic pain (principal); M79.18 Myalgia, other site; F17.200 Nicotine dependence, unspecified, uncomplicated; F12.90 Cannabis use, unspecified, uncomplicated; Z86.718 Personal history of other venous thrombosis and embolism; Z98.890 Other specified postprocedural states; Z88.6 Allergy status to analgesic agent
CPT/HCPCS: 99281

== ENCOUNTER 2019-08-26 11:53 | Emergency (ER) | payer MEDICAID ==
[2019-08-26 12:01] VITALS: BP 125/76
--- NOTE | 2019-08-26 12:17 | Emergency Department Report ---
Chief Complaint: Recheck/Abnormal Lab/Rx Stated Complaint: MEDICATION REFILL Time Seen by Provider: 08/26/19 12:09 - HPI History of Present Illness: This is a 24-year-old male nontoxic, well in appearance with no signs of distress presents to the ED pain medication refill. Stated is out of his medication for pain. Patient had chronic back pains from [facility]. Patient denies any fever, chills, headache, nausea, vomiting, chest pain or shortness of breathe. denies any other symptoms or complaints. Stated allergies to morphine. - Exam Vital Signs: Vital Signs 08/26/19 11:59 Temperature 98.4 F Pulse Rate 90 Respiratory 18 Rate Blood Pressure 125/76 O2 Sat by Pulse 100 Oximetry Physical Exam: normal exam. no abdominal pain. no fever. vitals stable. MSE screening note: Focused history and physical exam performed. Due to findings the following was ordered: ED Medical Decision Making - Medical Decision Making This is a 24-year-old male that presents with nonmedical emergency complaint. Patient denies any symptoms. I gave patient many different referrals to follow- up for medication refill for pain. Patient was instructed to Follow-up with a primary care doctor in 3-5 days or if symptoms worsen and continue return to emergency room as soon as possible. At time of discharge, the patient does not seem toxic or ill in appearance. No acute signs of distress noted. Patient agrees to discharge treatment plan of care. No further questions noted by the patient. ED Disposition for MSE Clinical Impression: Medication refill Disposition: MED SCREENING EXAM-LEFT Is pt being admited?: No Does the pt Need Aspirin: No Condition: Stable Additional Instructions: Follow-up with the referrals that you have been provided with or if symptoms worsen and continue return to emergency room as soon as possible. Referrals: PRIMARY MD ROGELIO [Referring] - 3-5 Days JAMES WEEKS MD [Staff Physician] - 3-5 Days [facility] [Outside] - 3-5 Days [facility] [place] [Outside] - 3-5 Days
== END 2019-08-26 12:30 | disposition left against medical advice (07) ==
LOC: ED 11:53
DX: M54.9 Dorsalgia, unspecified (principal); G89.29 Other chronic pain; Z76.0 Encounter for issue of repeat prescription
CPT/HCPCS: 99282

== ENCOUNTER 2019-08-26 13:08 | Emergency (ER) | payer MEDICAID ==
--- NOTE | 2019-08-26 13:15 | Emergency Department Report ---
Stated Complaint: PAIN MEDS/BACK PAIN Time Seen by Provider: 08/26/19 13:10 - HPI History of Present Illness: This is a 24-year-old male nontoxic, well in appearance with no signs of distress presents to the ED pain medication refill. Patient was just discharged by me with referrals to see PCP provide across the street for pain medication refill but patient went across the street and called the ambulance. Stated is out of his medication for pain. Patient had chronic back pains from [facility]. P atient denies any fever, chills, headache, nausea, vomiting, chest pain or shortness of breathe. denies any other symptoms or complaints. Stated allergies to morphine. - Exam Physical Exam: normal exam. no abdominal pain. no fever. vitals stable. MSE screening note: Focused history and physical exam performed. Due to findings the following was ordered: ED Medical Decision Making - Medical Decision Making This is a 24-year-old male that presents with nonmedical emergency complaint. Patient denies any symptoms. I gave patient many different referrals to follow- up for medication refill for pain. Patient was instructed to Follow-up with a primary care doctor in 3-5 days or if symptoms worsen and continue return to emergency room as soon as possible. At time of discharge, the patient does not seem toxic or ill in appearance. No acute signs of distress noted. Patient agrees to discharge treatment plan of care. No further questions noted by the patient. ED Disposition for MSE Clinical Impression: Medication refill Disposition: Z-07 MED SCREENING EXAM-LEFT Is pt being admited?: No Does the pt Need Aspirin: No Condition: Stable Additional Instructions: Follow-up with the referrals that you have been provided with or if symptoms worsen and continue return to emergency room as soon as possible. Referrals: PRIMARY MD ROGELIO [Referring] - 3-5 Days JAMES WEEKS MD [Staff Physician] - 3-5 Days [facility] [Outside] - 3-5 Days
[2019-08-26 13:18] VITALS: BP 124/77
== END 2019-08-26 13:31 | disposition left against medical advice (07) ==
LOC: ED 13:08
DX: M54.9 Dorsalgia, unspecified (principal); Z76.0 Encounter for issue of repeat prescription
CPT/HCPCS: 99282

== ENCOUNTER 2019-09-15 15:36 | Emergency (ER) | payer MEDICAID ==
[2019-09-15 15:40] VITALS: BP 100/70
--- NOTE | 2019-09-15 15:42 | Emergency Department Report ---
Chief Complaint: Back Pain/Injury Stated Complaint: BACK PAIN Time Seen by Provider: 09/15/19 15:40 - HPI History of Present Illness: This is a 24-year-old male nontoxic, well in appearance with no signs of distress presents to the ED pain for percocet dose in the ED. Stated is out of his medication for pain. Patient had chronic back pains from [facility]. Patient denies any fever, chills, headache, nausea, vomiting, chest pain or shortness of breathe. denies any other symptoms or complaints. Stated allergies to morphine. - Exam Vital Signs: Vital Signs 09/15/19 15:38 Temperature 98.2 F Pulse Rate 80 Respiratory 20 Rate Blood Pressure 100/70 O2 Sat by Pulse 100 Oximetry Physical Exam: normal exam. no abdominal pain. no fever. vitals stable. MSE screening note: Focused history and physical exam performed. Due to findings the following was ordered: ED Medical Decision Making - Medical Decision Making This is a 24-year-old male that presents with nonmedical emergency complaint. Patient denies any symptoms. I gave patient many different referrals to follow- up for medication refill for pain. Patient was instructed to Follow-up with a primary care doctor in 3-5 days or if symptoms worsen and continue return to emergency room as soon as possible. At time of discharge, the patient does not seem toxic or ill in appearance. No acute signs of distress noted. Patient agrees to discharge treatment plan of care. No further questions noted by the patient. ED Disposition for MSE Clinical Impression: Medication refill Chronic back pain Qualifiers: Back pain location: low back pain Back pain laterality: unspecified Sciatica presence: unspecified whether sciatica present Qualified Code(s): M54.5 - Low back pain; G89.29 - Other chronic pain Disposition: MED SCREENING EXAM-LEFT Is pt being admited?: No Does the pt Need Aspirin: No Condition: Stable Additional Instructions: Follow-up with a primary care doctor in 3-5 days or if symptoms worsen and continue return to emergency room as soon as possible. Referrals: SOPHIE MERCADO MD [Referring] - 3-5 Days JAMES WEEKS MD [Staff Physician] - 3-5 Days [facility] [Outside] - 3-5 Days
== END 2019-09-15 16:00 | disposition left against medical advice (07) ==
LOC: ED 15:36
DX: M54.9 Dorsalgia, unspecified (principal); G89.29 Other chronic pain; Z76.0 Encounter for issue of repeat prescription; Z88.4 Allergy status to anesthetic agent
CPT/HCPCS: 99281

== ENCOUNTER 2019-11-29 17:13 | Emergency (ER) | payer MEDICAID ==
[2019-11-29 17:27] VITALS: BP 131/83
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
== END 2019-11-29 18:19 | disposition left against medical advice (07) ==
LOC: ED 17:13
DX: M54.5 Low back pain (principal); G89.29 Other chronic pain; R00.0 Tachycardia, unspecified; Z88.6 Allergy status to analgesic agent
CPT/HCPCS: 99283

== ENCOUNTER 2020-01-28 21:22 | Emergency (ER) | payer MEDICAID ==
[2020-01-28] MEDS ORDERED: LORazepam 2 MG/ML VIAL ONE (21:25)
[2020-01-28] MEDS ORDERED: ZIPRASIDONE MESYLATE 20 MG VIAL IM ONE ×2 (21:27→21:28)
[2020-01-28] MEDS ORDERED: SODIUM CHLORIDE 0.9% 1000 ML 1,000 ML IV ONE ×2 (21:27→23:34)
[2020-01-28] MEDS ORDERED: LORazepam 2 MG/ML VIAL IM ONE (21:27)
[2020-01-28] MEDS ORDERED: WATER FOR INJ Sterile (PF) 10 ML ONE (21:28)
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
[2020-01-28 21:56] LABS: Basophils % (Auto) 0.5 % (0.0-1.8); Hematocrit 31.7 % (35.5-45.6); Hemoglobin 9.9 gm/dl (11.8-15.2); Lymphocytes % (Auto) 11.3 % (13.4-35.0); Mean Corpuscular HGB Conc 31 % (32-34); Mean Corpuscular Volume 73 fl (84-94); Monocytes # (Auto) 0.3 K/mm3 (0.0-0.8); Monocytes % (Auto) 3.4 % (0.0-7.3); Platelet Count 803 K/mm3 (140-440); Red Blood Count 4.34 M/mm3 (3.65-5.03); Red Cell Distribution Width 18.7 % (13.2-15.2)
[2020-01-28 22:18] LABS: Alanine Aminotransferase 7 units/L (7-56); BUN/Creatinine Ratio 18; Blood Urea Nitrogen 9 mg/dL (9-20); Calcium 9.2 mg/dL (8.4-10.2); Hemolysis Index 8
[2020-01-28 23:26] LABS: Creatine Kinase MB 2.4 ng/mL (0.0-4.0)
[2020-01-28 23:56] LABS: Benzodiazepines Screen,Urine PRESUMPTIVE NEGATIVE; Cocaine Screen,Urine PRESUMPTIVE NEGATIVE; Methadone Screen,Urine PRESUMPTIVE NEGATIVE; Opiate Screen,Urine PRESUMPTIVE NEGATIVE
[2020-01-28 23:59] LABS: Bacteria,Urine 1+ /HPF (Negative); Bilirubin,Urine NEG (Negative); Blood,Urine NEG (Negative); Color,Urine Yellow (Yellow); Mucus,Urine FEW /HPF; Protein,Urine <15 mg/dL mg/dL (Negative); Urobilinogen,Urine < 2.0 mg/dL (<2.0)
[2020-01-29 00:20] LABS: Amphetamine Screen,Urine PRESUMPTIVE POSITIVE; Cannabinoid Screen,Urine PRESUMPTIVE POSITIVE
[2020-01-29] MEDS ORDERED: CEFEPIME/NS 2 GM/100 ML 2 GM/100 ML BAG IV ONE (01:12)
[2020-01-29] MEDS ORDERED: HYDROmorphone 1 MG/1 ML INJ ONE (02:40)
[2020-01-29] MEDS ORDERED: ONDANSETRON 4 MG/2 ML INJ ONE (02:40)
[2020-01-29] MEDS ORDERED: HYDROmorphone 1 MG/1 ML INJ IV ONE (02:45)
[2020-01-29] MEDS ORDERED: ONDANSETRON 4 MG/2 ML INJ IV ONE (02:46)
[2020-01-29] MEDS ORDERED: LORazepam 2 MG/ML VIAL ONE (02:55)
[2020-01-29] MEDS ORDERED: LORazepam 2 MG/ML VIAL IV ONE (02:57)
[2020-01-29] MEDS ORDERED: SODIUM CHLORIDE 0.9% 1000 ML 1,000 ML ONE (03:03)
[2020-01-29] MEDS ORDERED: oxyCODONE /ACETAMINOPHEN 5-325MG TAB PO ONE ×2 (04:50→10:00)
[2020-01-29] MEDS ORDERED: oxyCODONE /ACETAMINOPHEN 5-325MG TAB ONE (04:53)
[2020-01-29 06:26] VITALS: BP 106/60
[2020-01-29] MEDS ORDERED: IBUPROFEN 600 MG TAB PO ONE (07:29)
== END 2020-01-29 10:40 | disposition left against medical advice (07) ==
LOC: ED 21:22
DX: T85.111A Breakdown (mechanical) of implanted electronic neurostimulator of peripheral nerve electrode (lead), initial encounter (principal); F23 Brief psychotic disorder; E86.0 Dehydration; F15.10 Other stimulant abuse, uncomplicated; F17.200 Nicotine dependence, unspecified, uncomplicated; F12.10 Cannabis abuse, uncomplicated; Z79.899 Other long term (current) drug therapy; Z88.6 Allergy status to analgesic agent; Z98.890 Other specified postprocedural states; X58.XXXA Exposure to other specified factors, initial encounter
CPT/HCPCS: 36415; 80053; 80307; 81001; 82550; 82553; 84484; 85025; 93005; 96361; 96365; 96372; 96375; 99284; J0692; J1170; J2060; J2405; J3486; J7030; 80320; G0480

== ENCOUNTER 2020-02-06 03:28 | Emergency (ER) | payer MEDICAID ==
[2020-02-06] MEDS ORDERED: SODIUM CHLORIDE 0.9% 1000 ML 1,000 ML IV ONE (03:32)
[2020-02-06] MEDS ORDERED: diphenhydrAMINE 50 MG/ML VIAL ONE (03:32)
[2020-02-06] MEDS ORDERED: LORazepam 2 MG/ML VIAL ONE (03:33)
[2020-02-06] MEDS ORDERED: ZIPRASIDONE MESYLATE 20 MG VIAL IM ONE ×2 (03:34→06:06)
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
[2020-02-06 04:51] LABS: Basophils % (Auto) 0.6 % (0.0-1.8); Eosinophils # (Auto) 0.1 K/mm3 (0.0-0.4); Eosinophils % (Auto) 1.2 % (0.0-4.3); Hematocrit 30.8 % (35.5-45.6); Hemoglobin 9.4 gm/dl (11.8-15.2); Lymphocytes # (Auto) 1.3 K/mm3 (1.2-5.4); Lymphocytes % (Auto) 18.7 % (13.4-35.0); Mean Corpuscular HGB Conc 31 % (32-34); Mean Corpuscular Volume 72 fl (84-94); Monocytes # (Auto) 0.5 K/mm3 (0.0-0.8); Monocytes % (Auto) 7.4 % (0.0-7.3); Platelet Count 626 K/mm3 (140-440); Red Blood Count 4.28 M/mm3 (3.65-5.03); Red Cell Distribution Width 18.8 % (13.2-15.2)
[2020-02-06 05:10] LABS: Alanine Aminotransferase 7 units/L (7-56); Albumin 3.7 g/dL (3.9-5); BUN/Creatinine Ratio 12; Blood Urea Nitrogen 7 mg/dL (9-20); Calcium 8.8 mg/dL (8.4-10.2); Hemolysis Index 0
[2020-02-06] MEDS ORDERED: LORazepam 2 MG/ML VIAL IM ONE (06:06)
[2020-02-06] MEDS ORDERED: diphenhydrAMINE 50 MG/ML VIAL IV ONE (06:07)
[2020-02-06 07:01] VITALS: BP 123/87
[2020-02-06 08:03] LABS: Bacteria,Urine 2+ /HPF (Negative); Mucus,Urine FEW /HPF
[2020-02-06 08:04] LABS: Bilirubin,Urine NEG (Negative); Blood,Urine NEG (Negative); Color,Urine Yellow (Yellow); Protein,Urine <15 mg/dL mg/dL (Negative)
[2020-02-06] MEDS ORDERED: POTASSIUM CHLORIDE ER 20 MEQ TAB PO ONE (08:58)
[2020-02-06 08:59] LABS: Amphetamine Screen,Urine PRESUMPTIVE NEGATIVE; Cocaine Screen,Urine PRESUMPTIVE NEGATIVE; Methadone Screen,Urine PRESUMPTIVE NEGATIVE; Opiate Screen,Urine PRESUMPTIVE NEGATIVE
[2020-02-06] MEDS ORDERED: POTASSIUM CHLORIDE ER 10 MEQ TAB PO ONE (09:00)
[2020-02-06] MEDS: POTASSIUM CHLORIDE 10 MEQ 10 MEQ/100 ML BAG IV SCH ×2 (09:01→09:02)
[2020-02-06 09:18] LABS: Benzodiazepines Screen,Urine PRESUMPTIVE POSITIVE; Cannabinoid Screen,Urine PRESUMPTIVE POSITIVE
== END 2020-02-06 18:16 | disposition home or self-care (01) ==
LOC: ED 03:28
DX: F19.959 Other psychoactive substance use, unspecified with psychoactive substance-induced psychotic disorder, unspecified (principal); F17.200 Nicotine dependence, unspecified, uncomplicated; R41.82 Altered mental status, unspecified; F12.10 Cannabis abuse, uncomplicated; Z79.899 Other long term (current) drug therapy; Z98.890 Other specified postprocedural states
CPT/HCPCS: 36415; 80053; 80307; 81001; 84443; 85025; 96361; 96372; 96374; 99284; J1200; J2060; J3480; J3486; 80320; G0480

== ENCOUNTER 2020-02-08 05:41 | Inpatient (IN) | payer MEDICAID ==
[2020-02-08] MEDS ORDERED: SODIUM CHLORIDE 0.9% 1000 ML 1,000 ML IV ONE (06:33)
[2020-02-08] MEDS ORDERED: LORazepam 1 MG TAB PO ONE (06:36)
[2020-02-08] MEDS ORDERED: QUEtiapine 100 MG TAB PO ONE (06:36)
[2020-02-08] MEDS ORDERED: ZIPRASIDONE MESYLATE 20 MG VIAL IM ONE ×2 (07:08)
[2020-02-08] MEDS ORDERED: WATER FOR INJ Sterile (PF) 10 ML ONE (07:08)
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
[2020-02-08] MEDS ORDERED: TETANUS,DIPHTHERIA TOXOID ADULT 0.5 ML INJ IM ONE (07:36)
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
[2020-02-08] MEDS ORDERED: DIPHtheria,PERTUSSIS(ACELL),TETANUS VACCINE/PF 0.5 ML VIAL IM ONE (09:20)
--- NOTE | 2020-02-08 09:25 | XRay Report ---
CHEST 1 VIEW 02/08/2020 8:17 AM INDICATION / CLINICAL INFORMATION: Chest pain/injury after fall. COMPARISON: One view of the chest from 03/01/2019. FINDINGS: SUPPORT DEVICES: None. HEART / MEDIASTINUM: No significant abnormality. LUNGS / PLEURA: No significant pulmonary or pleural abnormality. No pneumothorax. ADDITIONAL FINDINGS: No significant additional findings. IMPRESSION: 1. No acute abnormality of the chest. Signer Name: Trace Mcneil MD Signed: 02/08/2020 9:21 AM Workstation Name: [id number]
--- NOTE | 2020-02-08 09:28 | XRay Report ---
BILATERAL FEET 4 VIEWS INDICATION / CLINICAL INFORMATION: Bilateral foot pain/injury after fall. COMPARISON: None available. FINDINGS: BONES and JOINT(S): There is generalized demineralization of the bones without an acute fracture, dis location or significant arthritis. SOFT TISSUES: No significant abnormality. ADDITIONAL FINDINGS: None. IMPRESSION: No acute abnormality of the feet. Signer Name: Trace Mcneil MD Signed: 02/08/2020 9:23 AM Workstation Name: [id number]
[2020-02-08 09:30] LABS: Basophils # (Auto) 0.1 K/mm3 (0.0-0.1); Basophils % (Auto) 0.7 % (0.0-1.8); Eosinophils % (Auto) 0.6 % (0.0-4.3); Hematocrit 30.8 % (35.5-45.6); Hemoglobin 9.1 gm/dl (11.8-15.2); Lymphocytes # (Auto) 1.2 K/mm3 (1.2-5.4); Lymphocytes % (Auto) 15.1 % (13.4-35.0); Mean Corpuscular HGB Conc 30 % (32-34); Mean Corpuscular Volume 71 fl (84-94); Monocytes # (Auto) 0.6 K/mm3 (0.0-0.8); Monocytes % (Auto) 7.1 % (0.0-7.3); Platelet Count 695 K/mm3 (140-440); Red Blood Count 4.34 M/mm3 (3.65-5.03); Red Cell Distribution Width 18.9 % (13.2-15.2)
--- NOTE | 2020-02-08 09:33 | XRay Report ---
Lumbar spine-2 views AP pelvis INDICATION: Fall with back and leg pain. COMPARISON: None. IMPRESSION: Slightly limited exam because the patient was combative. Lumbar spine alignment is gross ly unremarkable although the lateral view is obliqued and the lumbosacral junction is poorly demonstr ated. No gross fracture in the pelvis. Right femoral head resection change is present and there is ag ain extensive heterotopic ossification about the right hip and the left ischial tuberosity where ther e are changes of chronic osteomyelitis. Mild multilevel discogenic DJD within the spine. Signer Name: Chirag Judd MD Signed: 02/08/2020 9:29 AM Workstation Name: [id number]
[2020-02-08 09:38] LABS: Creatine Kinase MB 3.6 ng/mL (0.0-4.0)
[2020-02-08 09:40] LABS: Alanine Aminotransferase 16 units/L (7-56); Albumin 3.7 g/dL (3.9-5); BUN/Creatinine Ratio 16; Blood Urea Nitrogen 11 mg/dL (9-20); Calcium 9.1 mg/dL (8.4-10.2); Hemolysis Index 0
[2020-02-08 09:41] LABS: INR 1.16 (0.87-1.13)
[2020-02-08 09:42] LABS: Partial Thromboplastin Time 42.4 Sec. (24.2-36.6)
[2020-02-08 10:00] LABS: Bilirubin,Direct < 0.2 mg/dL (0-0.2)
[2020-02-08] MEDS ORDERED: HYDROcodone/ACETAMINOPHEN 5-325 MG TAB ONE (11:34)
[2020-02-08 12:12] LABS: Bacteria,Urine 1+ /HPF (Negative); Bilirubin,Urine NEG (Negative); Blood,Urine NEG (Negative); Color,Urine Yellow (Yellow); Mucus,Urine 3+ /HPF
[2020-02-08 12:21] LABS: Cocaine Screen,Urine PRESUMPTIVE NEGATIVE; Methadone Screen,Urine PRESUMPTIVE NEGATIVE; Opiate Screen,Urine PRESUMPTIVE NEGATIVE
[2020-02-08 12:49] LABS: Amphetamine Screen,Urine PRESUMPTIVE POSITIVE; Benzodiazepines Screen,Urine PRESUMPTIVE POSITIVE; Cannabinoid Screen,Urine PRESUMPTIVE POSITIVE
[2020-02-08] MEDS ORDERED: oxyCODONE /ACETAMINOPHEN 5-325MG TAB PO ONE (14:03)
[2020-02-08] MEDS ORDERED: HYDROcodone/ACETAMINOPHEN 5-325 MG TAB PO ONE (14:25)
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
[2020-02-08] MEDS ORDERED: ACETAMINOPHEN 325 MG TAB PO PRN (15:27)
[2020-02-08] MEDS ORDERED: ONDANSETRON 4 MG/2 ML INJ IV PRN (15:27)
--- NOTE | 2020-02-08 15:30 | Nuclear Medicine Report ---
NM perfusion only lung scan INDICATION / CLINICAL INFORMATION: fall elevated dimer. TRACER: Technetium 99m MAA 4.5 mCi IV injection. COMPARISON: Chest x-ray earlier the same day. FINDINGS: No suspicious perfusion defect. IMPRESSION: No suspicious perfusion defect. Signer Name: Hair Esteves MD Signed: 02/08/2020 3:26 PM Workstation Name: [id number]
[2020-02-08 16:31] LABS: C-Reactive Protein 18.7 mg/dL (0.00-1.30)
[2020-02-08] MEDS ORDERED: ONDANSETRON 4 MG ODT TAB PO PRN (16:45)
[2020-02-08] MEDS: oxyCODONE /ACETAMINOPHEN 5-325MG TAB PO PRN (19:58)
[2020-02-08] MEDS ORDERED: QUEtiapine 100 MG TAB PO SCH (22:00)
[2020-02-08] MEDS: GABAPENTIN 100 MG CAP PO SCH (22:23)
[2020-02-08] MEDS: IBUPROFEN 800 MG TAB PO SCH (22:23)
[2020-02-09] MEDS: oxyCODONE /ACETAMINOPHEN 5-325MG TAB PO PRN ×4 (04:31→21:49)
[2020-02-09] MEDS: GABAPENTIN 100 MG CAP PO SCH ×3 (05:26→21:49)
[2020-02-09] MEDS: IBUPROFEN 800 MG TAB PO SCH ×4 (05:29→21:49)
[2020-02-09] MEDS ORDERED: levoFLOXacin 500 MG TAB PO SCH (10:00)
[2020-02-09] MEDS: SERTRALINE 50 MG TAB PO SCH (10:17)
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
--- NOTE | 2020-02-09 16:42 | Progress Note ---
Assessment and Plan /Suspected 2019 novel coronavirus infection - ruled out /left knee pain, ordered xry / Polysubstance abuse Supportive care, patient counseled regarding polysubstance abuse. Behavior change counseling +15 minutes. /Chronic pain syndrome Pain control, supportive care, outpatient pain management follow-up. / Chronic osteomyelitis Patient is on oral Levaquin daily. Continue antibiotic therapy. Follow-up with surgery as outpatient for postoperative wound evaluation. /Paraplegia, supportive care / DVT prophylaxis SCD to bilateral lower extremities while in bed, prophylactic heparin / Advance care planning Patient is full code, /discharge planning issue - Patient reports that he has no one at his residence to care for him. Patient requests assisted living facility placement. Case management consulted in ED. Subjective Date of service: 02/09/20 Interval history: Patient seen and examined states that he is homeless also c/o left knee pain COVID 19 is negative Objective - Constitutional Vitals: Vital Signs - 12hr 02/09/20 02/09/20 02/09/20 05:29 05:31 06:32 Temperature Pulse Rate Respiratory 18 18 18 Rate Blood Pressure Blood Pressure [Left] O2 Sat by Pulse Oximetry 02/09/20 02/09/20 02/09/20 08:01 13:55 16:15 Temperature Pulse Rate 104 H Respiratory 16 16 16 Rate Blood Pressure 112/71 Blood Pressure [Left] O2 Sat by Pulse 99 100 Oximetry 02/09/20 02/09/20 16:16 16:19 Temperature 98.8 F Pulse Rate 100 H Respiratory 16 Rate Blood Pressure Blood Pressure 106/65 [Left] O2 Sat by Pulse 100 Oximetry General appearance: Present: no acute distress - EENT Eyes: PERRL, EOM intact ENT: hearing intact, clear oral mucosa Ears: bilateral: normal - Neck Neck: supple, normal ROM - Respiratory Respiratory effort: normal Respiratory: bilateral: CTA - Cardiovascular Rhythm: regular Heart Sounds: Present: S1 & S2. Absent: gallop, rub Extremities: pulses intact, No edema, normal color, Full ROM - Gastrointestinal General gastrointestinal: Present: soft, non-tender, non-distended, normal bowel sounds - Integumentary Integumentary: clear, warm, dry - Musculoskeletal Musculoskeletal: other (paraplegic, left knee swelling) - Neurologic Neurologic: moves all extremities - Psychiatric Psychiatric: memory intact, appropriate mood/affect, intact judgment & insight - Labs CBC & Chem 7: 02/08/20 09:02 02/08/20 15:44
[2020-02-09] MEDS: ALPRAZolam 1 MG TAB PO PRN ×2 (18:22→23:59)
--- NOTE | 2020-02-09 19:14 | XRay Report ---
HISTORY:pain COMPARISON: None. TECHNIQUE: AP lateral and obliques views were obtained FINDINGS: Bones: Comminuted fracture with impaction metaphyseal diaphyseal portion of the distal tibia. Also no maryuri is a lucency in the proximal tibia fracture is a concern. The patella appears to be intact Joint spaces: Moderate narrowing of the femoral tibial articulation is present Soft tissues: Small joint effusion is present. Additional findings: None. IMPRESSION: 1. Traumatic changes left knee as noted recommend CT for further evaluation. Signer Name: Mack García MD Signed: 02/09/2020 7:10 PM Workstation Name: [id number]
[2020-02-09] MEDS ORDERED: QUEtiapine 100 MG TAB PO SCH (22:00)
[2020-02-10] MEDS: oxyCODONE /ACETAMINOPHEN 5-325MG TAB PO PRN ×3 (03:55→15:19)
[2020-02-10] MEDS: GABAPENTIN 100 MG CAP PO SCH ×2 (05:07→13:26)
[2020-02-10] MEDS: IBUPROFEN 800 MG TAB PO SCH ×2 (05:07→13:26)
--- NOTE | 2020-02-10 08:04 | Progress Note ---
Assessment and Plan 24 y/o male rule out COVID 19 1. Stable pulm status. Will sign off. Subjective Date of service: 02/10/20 Interval history: No acute events. COVID 19 test negative. Transferred to [facility] floor. Objective Vital Signs - 12hr 02/09/20 02/10/20 21:10 03:45 Temperature 98.1 F 98.4 F Pulse Rate 90 97 H Respiratory 16 16 Rate Blood Pressure 106/66 109/63 O2 Sat by Pulse 100 100 Oximetry CBC and BMP: 02/08/20 09:02 02/08/20 15:44 ABG, PT/INR, D-dimer: PT/INR, D-dimer PT 14.9 Sec. (12.2-14.9) 02/08/20 09:02 INR 1.16 (0.87-1.13) H 02/08/20 09:02 D-Dimer > 49138 ng/mlDDU (0-234) H 02/08/20 09:02 Abnormal lab findings: Abnormal Labs 02/08/20 02/08/20 02/08/20 09:02 09:02 09:02 Hgb 9.1 L Hct 30.8 L MCV 71 L MCH 21 L MCHC 30 L RDW 18.9 H Plt Count 695 H Seg Neutrophils % 76.5 H INR 1.16 H APTT 42.4 H D-Dimer > 20291 H Creatinine 0.7 L Lactic Acid Magnesium Alkaline Phosphatase 130 H Lactate Dehydrogenase Total Creatine Kinase 485 H C-Reactive Protein Total Protein 8.6 H Albumin 3.7 L 02/08/20 02/08/20 02/08/20 14:08 15:44 15:44 Hgb Hct MCV MCH MCHC RDW Plt Count Seg Neutrophils % INR APTT D-Dimer Creatinine Lactic Acid 2.50 H* Magnesium 2.50 H Alkaline Phosphatase Lactate Dehydrogenase 347 H Total Creatine Kinase C-Reactive Protein 18.70 H Total Protein Albumin
[2020-02-10] MEDS: SERTRALINE 50 MG TAB PO SCH (09:02)
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
[2020-02-10] MEDS: ALPRAZolam 1 MG TAB PO PRN (15:10)
[2020-02-10 17:08] VITALS: BP 107/63
== END 2020-02-10 17:54 | disposition home health service (06) | DRG 70 ==
LOC: ED 05:41 → IMCU 15:27 → 4A 02-09 20:43
PROVIDERS: ADMIT Internal Medicine; ATTEND Internal Medicine
PROC: 3E0234Z Introduction of Serum, Toxoid and Vaccine into Muscle, Percutaneous Approach (ICD-10-PCS; principal; 2020-02-08)
DX: G93.40 Encephalopathy, unspecified (principal); L89.324 Pressure ulcer of left buttock, stage 4; T81.49XA Infection following a procedure, other surgical site, initial encounter; F11.20 Opioid dependence, uncomplicated; F23 Brief psychotic disorder; M86.60 Other chronic osteomyelitis, unspecified site; F19.10 Other psychoactive substance abuse, uncomplicated; G82.20 Paraplegia, unspecified; G89.4 Chronic pain syndrome; Z86.718 Personal history of other venous thrombosis and embolism; W07.XXXA Fall from chair, initial encounter; Y93.89 Activity, other specified; Y92.89 Other specified places as the place of occurrence of the external cause; Y99.8 Other external cause status; E46 Unspecified protein-calorie malnutrition; Z68.1 Body mass index [BMI] 19.9 or less, adult; L89.159 Pressure ulcer of sacral region, unspecified stage; Z82.49 Family history of ischemic heart disease and other diseases of the circulatory system; Z88.6 Allergy status to analgesic agent; Z23 Encounter for immunization; Z93.3 Colostomy status; Z03.818 Encounter for observation for suspected exposure to other biological agents ruled out; F17.210 Nicotine dependence, cigarettes, uncomplicated; Z71.6 Tobacco abuse counseling; Z96.649 Presence of unspecified artificial hip joint; S90.812A Abrasion, left foot, initial encounter; S90.811A Abrasion, right foot, initial encounter; M00.9 Pyogenic arthritis, unspecified; Y83.9 Surgical procedure, unspecified as the cause of abnormal reaction of the patient, or of later complication, without mention of misadventure at the time of the procedure
CPT/HCPCS: 36415; 71045; 72100; 72170; 78580; 80048; 80053; 80076; 80307; 80320; 81001; 82140; 82550; 82553; 82728; 82947; 83615; 83735; 84145; 84443; 85025; 85379; 85610; 85730; 86140; 87040; 87641; 90715; 93005; 96361; 96372; 96374; 99406; G0378; A9540; G0480; J1200; J2060; J3480; J3486; J7030; U0003-CS

== ENCOUNTER 2020-03-11 22:21 | Emergency (ER) | payer MEDICAID, OTHER ==
[2020-03-11] MEDS ORDERED: HYDROmorphone 1 MG/1 ML INJ IV ONE (22:33)
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
--- NOTE | 2020-03-11 23:48 | XRay Report ---
HISTORY:knee pain. COMPARISON: 02/09/2020 TECHNIQUE: AP lateral and obliques views were obtained FINDINGS: Bones: Again noted is the comminuted fracture of the distal femur. The intramedullary darren is present. Callus formation is present at the fracture site Soft tissues: No significant abnormality. Additional findings: None. IMPRESSION: 1. Comminuted distal femoral fracture with intramedullary darren present Signer Name: Mack García MD Signed: 03/11/2020 11:43 PM Workstation Name: [id number]
[2020-03-11 23:56] LABS: Basophils # (Auto) 0.1 K/mm3 (0.0-0.1); Basophils % (Auto) 0.9 % (0.0-1.8); Eosinophils # (Auto) 0.1 K/mm3 (0.0-0.4); Eosinophils % (Auto) 0.6 % (0.0-4.3); Hematocrit 29.2 % (35.5-45.6); Hemoglobin 9.1 gm/dl (11.8-15.2); Lymphocytes # (Auto) 2.2 K/mm3 (1.2-5.4); Lymphocytes % (Auto) 24.9 % (13.4-35.0); Mean Corpuscular HGB Conc 31 % (32-34); Mean Corpuscular Volume 73 fl (84-94); Monocytes # (Auto) 0.8 K/mm3 (0.0-0.8); Monocytes % (Auto) 9.2 % (0.0-7.3); Platelet Count 887 K/mm3 (140-440)
[2020-03-12] MEDS ORDERED: HYDROmorphone 1 MG/1 ML INJ IV ONE ×3 (00:04→03:20)
[2020-03-12] MEDS ORDERED: SODIUM CHLORIDE 0.9% 1000 ML 1,000 ML IV ONE (00:06)
[2020-03-12 00:07] LABS: Red Cell Distribution Width 23.7 % (13.2-15.2)
[2020-03-12 00:15] LABS: Alanine Aminotransferase 5 units/L (7-56); Albumin 3.7 g/dL (3.9-5); BUN/Creatinine Ratio 16; Blood Urea Nitrogen 11 mg/dL (9-20); Calcium 8.6 mg/dL (8.4-10.2); Hemolysis Index 0
[2020-03-12 00:38] LABS: Erythrocyte Sedimentation Rate 105 mm/Hr (0-20)
[2020-03-12 02:59] VITALS: BP 109/73
== END 2020-03-12 03:57 | disposition other institution (70) ==
LOC: EEVIPCON 22:21 → ED 22:21
DX: M00.9 Pyogenic arthritis, unspecified (principal); D64.9 Anemia, unspecified; M25.562 Pain in left knee; R00.0 Tachycardia, unspecified; R70.0 Elevated erythrocyte sedimentation rate; F17.200 Nicotine dependence, unspecified, uncomplicated; Z79.899 Other long term (current) drug therapy; Z98.890 Other specified postprocedural states; Z88.6 Allergy status to analgesic agent; W07.XXXA Fall from chair, initial encounter; Y93.89 Activity, other specified; Y92.89 Other specified places as the place of occurrence of the external cause; Y99.8 Other external cause status
CPT/HCPCS: 36415; 36569; 73562; 80053; 85025; 85652; 96365; 96375; 96376; 99291; J1170; J7030

== ENCOUNTER 2020-07-13 19:23 | Emergency (ER) | payer MEDICAID | END 2020-07-13 20:00 | disposition left against medical advice (07) | LOC: ED 19:23 | DX: Z53.21 Procedure and treatment not carried out due to patient leaving prior to being seen by health care provider (principal) ==

== ENCOUNTER 2020-11-13 15:27 | Emergency (ER) | payer OTHER, MEDICAID ==
[2020-11-13] MEDS ORDERED: ASPIRIN 81 MG TAB CHEW PO ONE (15:51)
[2020-11-13] MEDS ORDERED: oxyCODONE /ACETAMINOPHEN 5-325MG TAB PO ONE (16:01)
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
--- NOTE | 2020-11-13 16:30 | XRay Report ---
CHEST 1 VIEW 11/13/2020 4:13 PM INDICATION / CLINICAL INFORMATION: Chest Pain. COMPARISON: 02/08/2020 FINDINGS: SUPPORT DEVICES: None. HEART / MEDIASTINUM: No significant abnormality. LUNGS / PLEURA: No significant pulmonary or pleural abnormality. No pneumothorax. ADDITIONAL FINDINGS: No significant additional findings. IMPRESSION: 1. No acute findings. Signer Name: Melvin Roberson MD Signed: 11/13/2020 4:26 PM Workstation Name: [id number]
[2020-11-13 16:39] LABS: INR 1.09 (0.87-1.13)
[2020-11-13 16:40] LABS: Partial Thromboplastin Time 37.6 Sec. (24.2-36.6)
[2020-11-13 16:48] LABS: Creatine Kinase MB 4.7 ng/mL (0.0-4.0)
[2020-11-13 16:49] LABS: Blood Urea Nitrogen 9 mg/dL (9-20); Calcium 8.6 mg/dL (8.4-10.2); Hemolysis Index 6
[2020-11-13 16:51] LABS: BUN/Creatinine Ratio 15; Basophils % (Auto) 0.7 % (0.0-1.8); Eosinophils # (Auto) 0.1 K/mm3 (0.0-0.4); Eosinophils % (Auto) 0.9 % (0.0-4.3); Hematocrit 37.2 % (35.5-45.6); Hemoglobin 11.6 gm/dl (11.8-15.2); Lymphocytes # (Auto) 1.7 K/mm3 (1.2-5.4); Lymphocytes % (Auto) 27.6 % (13.4-35.0); Mean Corpuscular HGB Conc 31 % (32-34); Mean Corpuscular Volume 72 fl (84-94); Monocytes # (Auto) 0.2 K/mm3 (0.0-0.8); Monocytes % (Auto) 3.4 % (0.0-7.3); Platelet Count 432 K/mm3 (140-440)
--- NOTE | 2020-11-13 19:24 | Cat Scan Report ---
CTA CHEST WITH CONTRAST INDICATION / CLINICAL INFORMATION: Chest pain. TECHNIQUE: Axial CT images were obtained through the chest after injection of IV contrast. 3 plane MIP and/or 3D reconstructions were produced. All CT scans at this location are performed using CT dose reduction f or ALARA by means of automated exposure control. COMPARISON: Chest radiograph dated 11/13/2020. Prior nuclear medicine perfusion only lung scan dated 02/08/2020. CT A chest dated 10/11/2018. FINDINGS: PULMONARY ARTERIES: No pulmonary emboli. THORACIC AORTA: No significant abnormality. HEART: No significant abnormality. CORONARY ARTERIES: No significant calcification. MEDIASTINUM / RILEY: No significant abnormality. PLEURA: No pleural effusion. No pneumothorax. LUNGS: No acute air space or interstitial disease. ADDITIONAL FINDINGS: None. UPPER ABDOMEN: No acute findings. Punctate nonobstructive left pelvicalyceal stone measures 3 mm. SKELETAL STRUCTURES: No significant osseous abnormality. IMPRESSION: 1. No CT evidence for pulmonary embolism. 2. No acute findings. Signer Name: Juvenal Amanda MD Signed: 11/13/2020 7:20 PM Workstation Name: [id number]
--- NOTE | 2020-11-13 21:52 | Vascular Lab Report ---
DUPLEX DOPPLER LOWER EXTREMITY VEINS, LEFT INDICATION / CLINICAL INFORMATION: Pain and swelling. TECHNIQUE: Duplex doppler imaging was performed through the veins of the left lower extremity using venous compr ession and other maneuvers. COMPARISON: None available. FINDINGS: LEFT COMMON FEMORAL VEIN: Negative. LEFT FEMORAL VEIN: Negative. LEFT POPLITEAL VEIN: Negative. LEFT CALF VEINS: Negative. ADDITIONAL FINDINGS: None. IMPRESSION: 1. No sonographic evidence for DVT in the left lower extremity. Signer Name: Juvenal Amanda MD Signed: 11/13/2020 9:47 PM Workstation Name: [id number]
[2020-11-13 22:18] VITALS: BP 122/82
== END 2020-11-13 22:17 | disposition left against medical advice (07) ==
LOC: ED 15:27
DX: R07.89 Other chest pain (principal); M54.6 Pain in thoracic spine; M25.562 Pain in left knee; Z90.49 Acquired absence of other specified parts of digestive tract; Z98.890 Other specified postprocedural states; Z79.899 Other long term (current) drug therapy; Z88.8 Allergy status to other drugs, medicaments and biological substances
CPT/HCPCS: 36415; 71045; 71275; 80048; 82550; 82553; 84484; 85025; 85379; 85610; 85730; 93005; 93971; 99285; Q9967

== ENCOUNTER 2020-12-23 08:54 | Emergency (ER) | payer MEDICAID, OTHER ==
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
[2020-12-23] MEDS ORDERED: oxyCODONE /ACETAMINOPHEN 5-325MG TAB PO ONE (13:19)
[2020-12-23 15:42] VITALS: BP 121/76
== END 2020-12-23 15:40 | disposition home or self-care (01) ==
LOC: ED 08:54
DX: L89.154 Pressure ulcer of sacral region, stage 4 (principal); F17.200 Nicotine dependence, unspecified, uncomplicated; F12.10 Cannabis abuse, uncomplicated; F14.10 Cocaine abuse, uncomplicated; Z90.49 Acquired absence of other specified parts of digestive tract; Z79.899 Other long term (current) drug therapy; Z88.8 Allergy status to other drugs, medicaments and biological substances

== ENCOUNTER 2021-01-03 12:49 | Emergency (ER) | payer MEDICAID | END 2021-01-03 15:30 | disposition left against medical advice (07) | LOC: ED 12:49 | DX: M25.562 Pain in left knee (principal); Z53.21 Procedure and treatment not carried out due to patient leaving prior to being seen by health care provider ==

== ENCOUNTER 2021-02-15 08:33 | Emergency (ER) | payer MEDICAID ==
[2021-02-15] MEDS ORDERED: ZIPRASIDONE MESYLATE 20 MG VIAL IM ONE (09:18)
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
[2021-02-15 11:32] LABS: Basophils % (Auto) 0.6 % (0.0-1.8); Eosinophils % (Auto) 0.1 % (0.0-4.3); Hematocrit 35.8 % (35.5-45.6); Hemoglobin 11.2 gm/dl (11.8-15.2); Lymphocytes # (Auto) 1.5 K/mm3 (1.2-5.4); Lymphocytes % (Auto) 31.1 % (13.4-35.0); Mean Corpuscular HGB Conc 31 % (32-34); Mean Corpuscular Volume 72 fl (84-94); Monocytes # (Auto) 0.2 K/mm3 (0.0-0.8); Monocytes % (Auto) 5.2 % (0.0-7.3); Platelet Count 439 K/mm3 (140-440); Red Blood Count 4.95 M/mm3 (3.65-5.03); Red Cell Distribution Width 19.3 % (13.2-15.2)
[2021-02-15 12:00] LABS: Alanine Aminotransferase 10 units/L (7-56); Albumin 3.7 g/dL (3.9-5); Blood Urea Nitrogen 5 mg/dL (9-20); Calcium 8.4 mg/dL (8.4-10.2); Hemolysis Index 0
[2021-02-15 12:09] LABS: BUN/Creatinine Ratio 10
[2021-02-15] MEDS ORDERED: POTASSIUM CHLORIDE ER 20 MEQ TAB PO ONE (12:28)
[2021-02-15 12:34] VITALS: BP 109/70
[2021-02-15 13:58] LABS: Benzodiazepines Screen,Urine Negative; Cocaine Screen,Urine Negative; Methadone Screen,Urine Negative; Opiate Screen,Urine Negative
[2021-02-15 14:04] LABS: Bilirubin,Urine NEG (Negative); Blood,Urine NEG (Negative); Color,Urine Yellow (Yellow); Mucus,Urine 1+ /HPF; Protein,Urine <15 mg/dL mg/dL (Negative); Urobilinogen,Urine < 2.0 mg/dL (<2.0)
[2021-02-15 14:33] LABS: Amphetamine Screen,Urine PRESUMPTIVE POSITIVE; Cannabinoid Screen,Urine PRESUMPTIVE POSITIVE
== END 2021-02-15 15:22 | disposition home or self-care (01) ==
LOC: ED 08:33
DX: F19.959 Other psychoactive substance use, unspecified with psychoactive substance-induced psychotic disorder, unspecified (principal); F17.200 Nicotine dependence, unspecified, uncomplicated; F12.10 Cannabis abuse, uncomplicated; F14.10 Cocaine abuse, uncomplicated; Z86.718 Personal history of other venous thrombosis and embolism; Z90.49 Acquired absence of other specified parts of digestive tract; Z98.890 Other specified postprocedural states; Z79.899 Other long term (current) drug therapy; Z88.8 Allergy status to other drugs, medicaments and biological substances
CPT/HCPCS: 36415; 80053; 80307; 81001; 85025; 96372; 99284; J3486; 80320; G0480

== ENCOUNTER 2021-07-15 11:39 | Emergency (ER) | payer MEDICAID, OTHER ==
[2021-07-15 12:16] VITALS: BP 115/80
[2021-07-15] MEDS ORDERED: oxyCODONE /ACETAMINOPHEN 5-325MG TAB PO ONE (12:17)
[2021-07-15] MEDS ORDERED: SODIUM CHLORIDE 0.9% 1000 ML 1,000 ML IV ONE (12:32)
[2021-07-15 13:43] LABS: Basophils # (Auto) 0.1 K/mm3 (0.0-0.1); Basophils % (Auto) 0.9 % (0.0-1.8); Eosinophils % (Auto) 0.2 % (0.0-4.3); Lymphocytes # (Auto) 1.4 K/mm3 (1.2-5.4); Lymphocytes % (Auto) 22.1 % (13.4-35.0); Mean Corpuscular HGB Conc 30 % (32-34); Mean Corpuscular Volume 71 fl (84-94); Monocytes # (Auto) 0.4 K/mm3 (0.0-0.8); Platelet Count 548 K/mm3 (140-440); Red Blood Count 5.95 M/mm3 (3.65-5.03); Red Cell Distribution Width 19.4 % (13.2-15.2)
[2021-07-15 13:47] LABS: Hematocrit 42.3 % (35.5-45.6); Hemoglobin 12.7 gm/dl (11.8-15.2)
[2021-07-15 13:52] LABS: INR 1.1 (0.87-1.13); Partial Thromboplastin Time 31.6 Sec. (24.2-36.6)
[2021-07-15 13:55] LABS: BUN/Creatinine Ratio 26; Blood Urea Nitrogen 18 mg/dL (9-20); Calcium 9.3 mg/dL (8.4-10.2); Hemolysis Index 8
--- NOTE | 2021-07-15 14:54 | XRay Report ---
CHEST 1 VIEW INDICATION / CLINICAL INFORMATION: chest pain STUDY TIME: 1212 COMPARISON: 11/13/2020 FINDINGS: SUPPORT DEVICES: None HEART / MEDIASTINUM: No significant abnormality. LUNGS / PLEURA: No significant acute pulmonary or pleural abnormality. No pneumothorax. ADDITIONAL FINDINGS: No significant additional findings. IMPRESSION: No significant acute abnormality Signer Name: Elijah Pritchett MD Signed: 07/15/2021 2:50 PM Workstation Name: [id number]
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
[2021-07-15 15:37] LABS: Cocaine Screen,Urine Negative; Methadone Screen,Urine Negative; Opiate Screen,Urine Negative
[2021-07-15 15:38] LABS: Bilirubin,Urine NEG (Negative); Blood,Urine NEG (Negative); Color,Urine Yellow (Yellow); Mucus,Urine 3+ /HPF; Urobilinogen,Urine < 2.0 mg/dL (<2.0)
[2021-07-15 15:54] LABS: Amphetamine Screen,Urine Positive; Benzodiazepines Screen,Urine Positive; Cannabinoid Screen,Urine Positive
--- NOTE | 2021-07-16 10:28 | Electrocardiograph Report ---
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
== END 2021-07-15 15:54 | disposition home or self-care (01) ==
LOC: ED 11:39
DX: R07.89 Other chest pain (principal); F43.10 Post-traumatic stress disorder, unspecified; F41.9 Anxiety disorder, unspecified; I20.9 Angina pectoris, unspecified; Z98.890 Other specified postprocedural states; F17.290 Nicotine dependence, other tobacco product, uncomplicated; Z88.5 Allergy status to narcotic agent
CPT/HCPCS: 36415; 71045; 80048; 80307; 81001; 84484; 85025; 85379; 85610; 85730; 93005; 99284; J7030

== ENCOUNTER 2021-08-01 21:20 | Emergency (ER) | payer OTHER, MEDICAID ==
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
--- NOTE | 2021-08-01 23:47 | XRay Report ---
CHEST 1 VIEW 08/01/2021 11:28 PM INDICATION / CLINICAL INFORMATION: Chest Pain. COMPARISON: 07/15/21 FINDINGS: SUPPORT DEVICES: None. HEART / MEDIASTINUM: No significant abnormality. LUNGS / PLEURA: No significant pulmonary or pleural abnormality. No pneumothorax. ADDITIONAL FINDINGS: Bridging ossification between the left 7th and 8th ribs is unchanged. IMPRESSION: 1. No acute findings. No change Signer Name: Vivian Begum MD Signed: 08/01/2021 11:42 PM Workstation Name: [id number]
[2021-08-01] MEDS ORDERED: PANTOPRAZOLE 40 MG TAB PO ONE (23:48)
[2021-08-01] MEDS ORDERED: ACETAMINOPHEN 325 MG TAB PO ONE (23:48)
[2021-08-02 00:05] LABS: Basophils % (Auto) 0.7 % (0.0-1.8); Eosinophils % (Auto) 0.6 % (0.0-4.3); Lymphocytes # (Auto) 1.9 K/mm3 (1.2-5.4); Lymphocytes % (Auto) 28.6 % (13.4-35.0); Mean Corpuscular HGB Conc 30 % (32-34); Mean Corpuscular Volume 71 fl (84-94); Monocytes # (Auto) 0.3 K/mm3 (0.0-0.8); Monocytes % (Auto) 4.8 % (0.0-7.3); Platelet Count 480 K/mm3 (140-440); Red Blood Count 4.83 M/mm3 (3.65-5.03)
[2021-08-02 00:07] LABS: Hematocrit 34.2 % (35.5-45.6); Hemoglobin 10.2 gm/dl (11.8-15.2); Red Cell Distribution Width 20.1 % (13.2-15.2)
[2021-08-02 00:15] LABS: INR 0.98 (0.87-1.13)
[2021-08-02 00:26] LABS: BUN/Creatinine Ratio 17; Blood Urea Nitrogen 10 mg/dL (9-20); Hemolysis Index 8
[2021-08-02 02:00] VITALS: BP 122/79
--- NOTE | 2021-08-02 13:34 | Electrocardiograph Report ---
[facility] Test Date: 2021-08-01 Test Time: 23:59:39 Pat Name: RASHEED GOLDSMITH Department: Room: Gender: M Materials Technician: MARIA ISABEL : 1995 Requested By: SUSANNAH YOUNG Order Number: [id number] Reading MD: Fátima Downey Measurements Intervals [place] Rate: 95 P: 71 AK: 143 QRS: 78 QRSD: 66 T: 58 QT: 376 QTc: 473 Interpretive Statements Sinus rhythm Early repolarization ST segment abnormality Compared to ECG 07/15/2021 15:27:17 No significant change Electronically Signed On 08-02-2021 13:34:25 EST by Fátima Downey
== END 2021-08-02 02:00 ==
LOC: ED 21:20
DX: L89.159 Pressure ulcer of sacral region, unspecified stage (principal); G82.20 Paraplegia, unspecified; G89.29 Other chronic pain; R07.9 Chest pain, unspecified; Z13.30 Encounter for screening examination for mental health and behavioral disorders, unspecified; R55 Syncope and collapse; Z88.6 Allergy status to analgesic agent; Z88.8 Allergy status to other drugs, medicaments and biological substances; Z88.5 Allergy status to narcotic agent
CPT/HCPCS: 36415; 71045; 80048; 82550; 83735; 84484; 85025; 85379; 85610; 93005

== ENCOUNTER 2021-10-16 21:46 | Emergency (ER) | payer MEDICAID, OTHER ==
[2021-10-16] MEDS ORDERED: LORazepam 1 MG TAB PO ONE (22:21)
[2021-10-16] MEDS ORDERED: ZIPRASIDONE MESYLATE 20 MG VIAL IM ONE (22:56)
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
[2021-10-17] MEDS: ZIPRASIDONE MESYLATE 20 MG VIAL IM ONE ×2 (01:50→01:55)
[2021-10-17] MEDS ORDERED: ZIPRASIDONE MESYLATE 20 MG VIAL IM ONE (04:50)
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
[2021-10-17] MEDS ORDERED: HYDROcodone/ACETAMINOPHEN 5-325 MG TAB PO ONE (11:17)
--- NOTE | 2021-10-17 11:18 | Event Note ---
Date: 10/17/21 pt is stable requesting pain meds for his ulcer, awaiting assessment
[2021-10-17 12:20] VITALS: BP 113/71
== END 2021-10-17 12:17 | disposition home or self-care (01) ==
LOC: ED 21:46
DX: F29 Unspecified psychosis not due to a substance or known physiological condition (principal); G82.20 Paraplegia, unspecified; F17.200 Nicotine dependence, unspecified, uncomplicated; F12.90 Cannabis use, unspecified, uncomplicated; Z88.5 Allergy status to narcotic agent; Z88.8 Allergy status to other drugs, medicaments and biological substances; Z90.49 Acquired absence of other specified parts of digestive tract; Z98.890 Other specified postprocedural states; Z20.822 Contact with and (suspected) exposure to COVID-19
CPT/HCPCS: 96372; 99282; J3486; U0003

== ENCOUNTER 2021-10-24 22:08 | Emergency (ER) | payer MEDICAID ==
[2021-10-24] MEDS ORDERED: ZIPRASIDONE MESYLATE 20 MG VIAL IM ONE ×2 (22:52→22:54)
[2021-10-24 23:54] LABS: Basophils % (Auto) 0.3 % (0.0-1.8); Lymphocytes # (Auto) 0.8 K/mm3 (1.2-5.4); Lymphocytes % (Auto) 6.8 % (13.4-35.0); Mean Corpuscular HGB Conc 30 % (32-34); Mean Corpuscular Volume 72 fl (84-94); Monocytes # (Auto) 0.7 K/mm3 (0.0-0.8); Monocytes % (Auto) 6.6 % (0.0-7.3); Platelet Count 503 K/mm3 (140-440); Red Blood Count 4.88 M/mm3 (3.65-5.03); Red Cell Distribution Width 19.7 % (13.2-15.2)
[2021-10-25 00:15] LABS: Blood Urea Nitrogen 9 mg/dL (9-20); Calcium 8.7 mg/dL (8.4-10.2); Hemolysis Index 0
[2021-10-25 00:17] LABS: BUN/Creatinine Ratio 15
[2021-10-25 00:35] LABS: Hematocrit 35.3 % (35.5-45.6); Hemoglobin 10.5 gm/dl (11.8-15.2)
[2021-10-25] MEDS ORDERED: LORazepam 2 MG/ML VIAL IM ONE (02:00)
[2021-10-25] MEDS ORDERED: HALOPERIDOL LACTATE 5 MG/1 ML INJ IM ONE (02:00)
[2021-10-25] MEDS ORDERED: LORazepam 2 MG/ML VIAL ONE (04:03)
[2021-10-25] MEDS ORDERED: HALOPERIDOL LACTATE 5 MG/1 ML INJ ONE (04:04)
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
[2021-10-25 06:52] LABS: Bilirubin,Urine NEG (Negative); Blood,Urine NEG (Negative); Color,Urine Yellow (Yellow); Urobilinogen,Urine < 2.0 mg/dL (<2.0)
[2021-10-25 07:00] LABS: Benzodiazepines Screen,Urine Negative; Methadone Screen,Urine Negative; Opiate Screen,Urine Negative
[2021-10-25 07:17] LABS: RBC,Urine < 1.0 /HPF (0.0-6.0); WBC,Urine < 1.0 /HPF (0.0-6.0)
[2021-10-25 07:20] VITALS: BP 104/63
[2021-10-25 07:46] LABS: Amphetamine Screen,Urine PRESUMPTIVE POSITIVE; Cannabinoid Screen,Urine PRESUMPTIVE POSITIVE
[2021-10-25 07:47] LABS: Cocaine Screen,Urine PRESUMPTIVE POSITIVE
== END 2021-10-25 11:30 | disposition left against medical advice (07) ==
LOC: ED 22:08
DX: F41.9 Anxiety disorder, unspecified (principal); R44.0 Auditory hallucinations; F12.10 Cannabis abuse, uncomplicated; F19.10 Other psychoactive substance abuse, uncomplicated; F14.10 Cocaine abuse, uncomplicated; F15.10 Other stimulant abuse, uncomplicated; F17.200 Nicotine dependence, unspecified, uncomplicated; Z88.5 Allergy status to narcotic agent; Z88.8 Allergy status to other drugs, medicaments and biological substances
CPT/HCPCS: 36415; 80048; 80307; 81001; 85025; 96372; 99284; J1630; J2060; J3486; 80320; G0480

== ENCOUNTER 2021-11-14 15:38 | Emergency (ER) | payer MEDICAID ==
[2021-11-14 15:42] VITALS: BP 120/80
== END 2021-11-14 22:25 | disposition left against medical advice (07) ==
LOC: ED 15:38
DX: S31.805A Open bite of unspecified buttock, initial encounter (principal); Z53.21 Procedure and treatment not carried out due to patient leaving prior to being seen by health care provider

== ENCOUNTER 2021-12-11 14:00 | Emergency (ER) | payer MEDICAID ==
[2021-12-11] MEDS ORDERED: SODIUM CHLORIDE 0.9% 1000 ML 1,000 ML IV ONE (14:37)
[2021-12-11] MEDS ORDERED: LORazepam 2 MG/ML VIAL IV ONE (14:49)
[2021-12-11 15:10] LABS: Hematocrit 33.8 % (35.5-45.6); Hemoglobin 10.1 gm/dl (11.8-15.2); Mean Corpuscular HGB Conc 30 % (32-34); Mean Corpuscular Volume 73 fl (84-94); Platelet Count 505 K/mm3 (140-440); Red Blood Count 4.66 M/mm3 (3.65-5.03); Red Cell Distribution Width 19.9 % (13.2-15.2)
[2021-12-11 15:12] LABS: INR 1.08 (0.87-1.13)
[2021-12-11 15:18] LABS: Alanine Aminotransferase 11 units/L (7-56); Blood Urea Nitrogen 7 mg/dL (9-20); Calcium 8.9 mg/dL (8.4-10.2); Hemolysis Index 1
[2021-12-11 15:28] LABS: BUN/Creatinine Ratio 14
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
[2021-12-11 17:57] VITALS: BP 134/78
== END 2021-12-11 17:54 | disposition home or self-care (01) ==
LOC: ED 14:00
DX: K92.1 Melena (principal); F41.9 Anxiety disorder, unspecified; F15.20 Other stimulant dependence, uncomplicated; Z88.6 Allergy status to analgesic agent; Z88.5 Allergy status to narcotic agent
CPT/HCPCS: 36415; 80053; 82270; 85025; 85610; 96361; 96374; 99283; J2060; J7030; Q0162

== ENCOUNTER 2021-12-12 08:18 | Emergency (ER) | payer MEDICAID | END 2021-12-12 17:58 | disposition left against medical advice (07) | LOC: ED 08:18 | DX: K62.5 Hemorrhage of anus and rectum (principal); Z53.21 Procedure and treatment not carried out due to patient leaving prior to being seen by health care provider ==